=== PATIENT | female | born 1940 | race Caucasian/White ===

== ENCOUNTER 2016-08-04 15:08 | Outpatient (CLI) | payer MEDICARE | END 2016-08-04 15:09 | disposition critical access hospital (66) | LOC: EMS 15:08 | PROVIDERS: ATTEND Surgery | DX: R53.83 Other fatigue (principal); R53.1 Weakness; R41.0 Disorientation, unspecified; R50.9 Fever, unspecified | CPT/HCPCS: A0425; A0427 ==

== ENCOUNTER 2016-08-04 15:30 | Inpatient (IN) | payer MEDICARE ==
[2016-08-04] MEDS ORDERED: SODIUM CHLORIDE 0.9% 1,000 ML IV ONE (15:47)
--- NOTE | 2016-08-04 15:50 | ED Physician Documentation ---
History of Present Illness - Stated complaint Stated Complaint: LETHARGIC - Chief complaint Chief Complaint: Resp - History obtained from History obtained from: Family (daughter) - History of Present Illness Timing: Other (76-year-old with dementia and COPD, wears home O2, recently brought up from [place] to live with her daughter because of care issues. Over the last 3 days developed increasingly altered mental status as well as a productive cough and shortness of breath.) Review of Systems Unable to obtain: Confused PD PAST MEDICAL HISTORY - Present Medications Home Medications: Ambulatory Orders Medication Instructions Recorded Confirmed Albuterol Sulf [Ventolin Hfa 1 puffs INH PRN PRN 08/04/16 08/04/16 Inhaler] Atenolol 50 mg PO BID 08/04/16 08/04/16 Clopidogrel [Plavix] 75 mg PO DAILY 08/04/16 08/04/16 Gabapentin 300 mg PO BID 08/04/16 08/04/16 - Allergies Allergies/Adverse Reactions: Allergies Allergy/AdvReac Type Severity Reaction Status Date / Time No Known Drug Allergies Allergy Verified 08/04/16 15:43 PD ED PE NORMAL - Vitals Vital signs reviewed: Yes - General General: Other (somewhat lethargic, saying her daughter's name but not following commands well or answering questions, quite thin) - HEENT HEENT: PERRL, Other (dry MM) - Neck Neck: Supple, no meningeal sign, No bony TTP - Cardiac Cardiac: RRR, No murmur - Respiratory Respiratory: Other (Rhonchourous throughout, diminished R base) - Abdomen Abdomen: Soft, Other (TP low abd) - Back Back: No CVA TTP, No spinal TTP - Derm Derm: No rash - Extremities Extremities: No edema, No calf tenderness / cord - Neuro Neuro: No motor deficit, No sensory deficit, Other (JOHNSON x4) Results - Vitals Vitals: Vital Signs - 24 hr 08/04/16 08/04/16 08/04/16 15:36 17:11 19:38 Temperature 37.0 C Heart Rate 87 95 108 H Respiratory 20 33 H Rate Blood Pressure 170/92 H 160/113 H O2 Saturation 100 97 08/04/16 08/04/16 08/04/16 19:45 19:54 20:04 Temperature Heart Rate 113 H 106 H 117 H Respiratory 34 H 28 H 29 H Rate Blood Pressure 155/99 H O2 Saturation 98 05/09/17 05/09/17 05/09/17 20:45 21:19 23:08 Temperature Heart Rate 115 H 97 82 Respiratory 30 H 26 H 26 H Rate Blood Pressure 131/61 H 107/57 L 116/49 L O2 Saturation 99 99 99 Oxygen O2 Source BIPAP Oxygen Flow Rate 4 - EKG (time done) 1618 Rate: Rate (enter#) (72) Rhythm: NSR, PUNE[place]: Normal QRS: Normal Ischemia: Normal ST segments Computer interpretation: Agree with computer - Labs Labs: Laboratory Tests 08/04/16 08/04/16 08/04/16 16:23 16:23 16:23 WBC 15.3 H RBC 3.37 L Hgb 8.8 L Hct 29.2 L MCV 86.6 MCH 26.1 L MCHC 30.2 L RDW 17.7 H Plt Count 441 MPV 7.4 L Neut # 13.6 H Lymph # 0.3 L [place] # 1.4 H Eos # 0.0 Baso # 0.0 Absolute Nucleated RBC 0.03 Nucleated RBCs 0.2 PT 11.5 INR 1.0 VBG pH VBG pCO2 VBG pO2 VBG HCO3 VBG Total CO2 VBG O2 Saturation VBG Base Excess Sodium 144 Potassium 4.6 Chloride 97 L Carbon Dioxide 39 H* Anion Gap 8.0 BUN 25 H Creatinine 1.0 Estimated GFR (MDRD) 54 L Glucose 101 H Lactic Acid Calcium 9.7 Total Bilirubin 0.4 AST 34 ALT 53 Alkaline Phosphatase 99 Total Protein 6.5 L Albumin 2.9 L Globulin 3.6 Albumin/Globulin Ratio 0.8 L Lipase 33 Urine Color Urine Clarity Urine pH Ur Specific [place] Urine Protein Urine Glucose (UA) Urine Ketones Urine Occult Blood Urine Nitrite Urine Bilirubin Urine Urobilinogen Ur Leukocyte Esterase Urine RBC Urine WBC Ur Squamous Epith Cells Urine Crystals Urine Bacteria Urine Casts Urine Mucus Ur Microscopic Review Urine Culture Comments 08/04/16 08/04/16 08/04/16 16:23 16:40 20:15 WBC RBC Hgb Hct MCV MCH MCHC RDW Plt Count MPV Neut # Lymph # [place] # Eos # Baso # Absolute Nucleated RBC Nucleated RBCs PT INR VBG pH 7.096 L VBG pCO2 100.7 H VBG pO2 40.0 VBG HCO3 30.3 H VBG Total CO2 33.4 H VBG O2 Saturation 62.4 VBG Base Excess -1.3 Sodium Potassium Chloride Carbon Dioxide Anion Gap BUN Creatinine Estimated GFR (MDRD) Glucose Lactic Acid 1.2 Calcium Total Bilirubin AST ALT Alkaline Phosphatase Total Protein Albumin Globulin Albumin/Globulin Ratio Lipase Urine Color YELLOW Urine Clarity CLEAR Urine pH 6.0 Ur Specific [place] >=1.030 H Urine Protein 100 H Urine Glucose (UA) NEGATIVE Urine Ketones NEGATIVE Urine Occult Blood SMALL H Urine Nitrite NEGATIVE Urine Bilirubin NEGATIVE Urine Urobilinogen 0.2 (NORMAL) Ur Leukocyte Esterase NEGATIVE Urine RBC None Seen Urine WBC 0-3 Ur Squamous Epith Cells NONE SEEN Urine Crystals 0-2 Uric Acid Urine Bacteria Few Urine Casts 0-2 Hyaline Casts Urine Mucus Few Strands Ur Microscopic Review INDICATED Urine Culture Comments NOT INDICATED - Rads (name of study) 1v chest Radiology: EMP read contemporaneously (2.5 cm mid left lung nodule, diffuse interstitial opacities. Note the daughter was aware of a lung nodule and is following with a composition professor for evaluation, she is aware that it may be cancer.) HEAD CT Radiology: EMP read contemporaneously (AGE RELATED CHGS) CT A/P Radiology: EMP read contemporaneously (Right lower lobe nodule, opacities in both lungs, bibasilar consolidation with effusions, large calcified fibroid, abdominal aortic atherosclerosis) PD MEDICAL DECISION MAKING - ED course ED course: 76-year-old woman with COPD, peripheral vascular disease and dementia presents with acutely altered mental status with a productive cough. Chest x-ray shows a known nodule, CT of the abdomen and pelvis done for abdominal tenderness does demonstrate bibasilar pneumonia and concerns for metastatic disease as well as vascular disease. She is administered IV antibiotics (rocephin and zithro IV), steroid, nebulized treatments (x4) for some respiratory distress and will need to be admitted given her tenuous status. She did have a respiratory decline while here and developed more respiratory distress. After Dr. Graff's evaluation a blood gas was done and noted to have a respiratory acidosis which was pretty significant. She was placed on BiPAP. Intubation was discussed with the family and they were on the fence, given her cachexia etc. prognosis is fairly poor with intubation were without. She seemed comfortable once on BiPAP though. ICU here was full, so she couldn't be admitted here. I called [facility], they do not except critical patients in transport because there hospitalist is not in house during the night. [facility] was full, [place] full, [place] full. [place] full[place] [facility] full, [place] Full[place] Accepted by Dr Lowery at [facility] at 11pm, he reuqested we do a POLST prior to transport. Form discussed with daughter and son and agree she is now DNR/DNI, limited interventions, no tube feeds. But ok with Bipap, abx, IVF. [facility] called back very quickly and backtracked- due to a sick RN they cannot accept the patient. Spoke more with house sup here and ok to keep here - an ICU bed opened up. - Consults Consults: Consulted (name) (Dr Graff, hospitalist [id number]) - Critical Care Time(min): 59 Time Includes: Direct patient care, Review records, Reassess patient, Document care, Coordinate care, Medical consult, Family consult for tx dec Data interpretation: Labs, Pulse ox Procedures included in critical care time: Peripheral IV Procedures excluded from critical care time: EKG Departure - Departure Disposition: 66 [facility] DC/Xfer Clinical Impression: COPD exacerbation Altered mental status Qualifiers: Altered mental status type: delirium Qualified Code(s): R41.0 - Disorientation , unspecified Condition: Serious
[2016-08-04 16:30] LABS: BASOPHILS % (AUTO) 0.1 %; EOSINOPHILS % (AUTO) 0.1 %; HCT - HEMATOCRIT 29.2 % (37.0-47.0); HGB - HEMOGLOBIN 8.8 g/dL (12.0-16.0); LYMPHOCYTES # (AUTO) 0.3 10^3/uL (1.5-3.5); LYMPHOCYTES % (AUTO) 2.1 %; MEAN CORPUSCULAR HEMOGLOBIN 26.1 pg (27.0-31.0); MEAN CORPUSCULAR HGB CONC 30.2 g/dL (32.0-36.0); MEAN CORPUSCULAR VOLUME 86.6 fL (81.0-99.0); MEAN PLATELET VOLUME 7.4 fL (7.9-10.8); MONOCYTES # (AUTO) 1.4 10^3/uL (0.0-1.0); NEUTROPHILS # (AUTO) 13.6 10^3/uL (1.5-6.6); NEUTROPHILS % (AUTO) 88.7 %; NUCLEATED RED BLOOD CELLS AUTO 0.2 /100WBC; RED BLOOD COUNT 3.37 10^6/uL (4.20-5.40); RED CELL DISTRIBUTION WIDTH 17.7 % (12.0-15.0); UNCORRECTED WHITE BLOOD COUNT 15.3 x10^3/uL; WHITE BLOOD COUNT 15.3 x10^3/uL (4.8-10.8)
[2016-08-04 16:43] LABS: PT - PROTHROMBIN TIME 11.5 secs (9.9-12.6)
--- NOTE | 2016-08-04 16:44 | XRAY Report ---
EXAM: CHEST RADIOGRAPHY EXAM DATE: 08/04/2016 04:20 PM. CLINICAL HISTORY: Severe cough. COMPARISON: None. TECHNIQUE: 1 view. FINDINGS: Lungs/Pleura: There is a 2.5 cm rounded nodule in the left mid lung projecting lateral to the hilum. There are findings of previous surgery of the right lung with right lung volume loss. There is modera te diffuse interstitial and reticular pulmonary density. Negative for a pneumothorax. Mediastinum: Heart size is normal. Mild to moderate aortic arch atherosclerotic calcification. Other: None. IMPRESSION: 1. 2.5 cm mid left lung nodule. Differential diagnosis includes lung cancer, pneumonia, superimposed density, granulomatous disease. Comparison with previous chest x-rays recommended to evaluate stabili ty. Further workup may include serial follow-up chest x-ray or chest CT. 2. Diffuse interstitial opacities, chronic versus acute. Differential considerations include panbronc hiolitis, pulmonary fibrosis, viral pneumonia, diffuse airways inflammation, or edema. [facility] Referring Provider Line: [phone] SITE ID: [id number]
[2016-08-04 16:48] LABS: BILIRUBIN,URINE NEGATIVE (NEGATIVE)
[2016-08-04 16:50] LABS: ALBUMIN/GLOBULIN RATIO 0.8 (1.0-2.2); BILIRUBIN,TOTAL 0.4 mg/dL (0.2-1.0); CALCIUM 9.7 mg/dL (8.5-10.3); POTASSIUM 4.6 mmol/L (3.5-5.0); TOTAL PROTEIN 6.5 g/dL (6.7-8.2)
[2016-08-04 16:52] LABS: UA w/ MICROSCOPIC CHARGE YES
[2016-08-04 17:02] LABS: WBC,URINE 0-3 /HPF (0-5)
[2016-08-04 17:03] LABS: UR CULTURE IF IND NOT INDICATED
[2016-08-04] MEDS ORDERED: IOPAMIDOL-300 100 ML VIAL IVP ONE (18:04)
--- NOTE | 2016-08-04 18:32 | CT Preliminary Report ---
Exam: CT Head W/O IMPRESSION: Generalized age-related cortical atrophic changes without evidence of acute intracranial abnormality. [facility] SITE ID: [id number]
--- NOTE | 2016-08-04 18:34 | CT Report ---
EXAM: CT HEAD EXAM DATE: 08/04/2016 06:08 PM. CLINICAL HISTORY: Altered . COMPARISON: None. TECHNIQUE: Multiaxial CT images were obtained from the foramen magnum to the vertex. IV contrast: Non e. Reformats: Coronal. In accordance with CT protocol optimization, one or more of the following dose reduction techniques w ere utilized for this exam: automated exposure control, adjustment of mA and/or KV based on patient s ize, or use of iterative reconstructive technique. FINDINGS: Parenchyma: No intraparenchymal hemorrhage. No evidence of mass, midline shift, or CT findings of acu te infarction. Patton-white differentiation is distinct. Extraaxial Spaces: Normal for age. No subdural or epidural collections identified. Ventricles: The ventricles and cortical sulci are enlarged, consistent with age-related tissue loss. Sinuses: Imaged paranasal sinuses, orbits, and mastoids show no significant abnormality. Bones: No evidence of fracture or calvarial defect. Other: Diffuse chronic microangiopathic white matter changes are evident. IMPRESSION: Generalized age-related cortical atrophic changes without evidence of acute intracranial abnormality. [facility] Referring Provider Line: [phone] SITE ID: [id number]
--- NOTE | 2016-08-04 18:46 | CT Preliminary Report ---
Exam: CT Abdomen/Pelvis W/ IMPRESSION: 1. Right lower lobe 1.2 cm pulmonary nodule. Further workup for lung malignancy is recommended. There are scattered smaller bilateral lower lobe pulmonary nodules. These could be metastasis versus infec tious/inflammatory nodules. 2. [id number] bilateral reticular hazy opacities are seen in the lungs which could represent pu lmonary fibrotic changes versus infectious/inflammatory disease. Mild amount of pulmonary edema is no t excluded. 3. Minimal bibasilar consolidation and bilateral pleural effusions. 4. Large posterior subserosal uterine fibroid, heavily calcified, measures 5.3 cm. 5. Marked atherosclerotic calcification of the abdominal aorta with severe calcification of the bilat eral iliac arteries. This appears to be causing hemodynamically significant stenosis in the bilateral common iliac arteries. Otherwise, as above. [facility] SITE ID: [id number]
--- NOTE | 2016-08-04 18:49 | CT Report ---
EXAM: CT ABDOMEN AND PELVIS EXAM DATE: 08/04/2016 06:08 PM. CLINICAL HISTORY: Low abdominal tender to palpation, altered COMPARISONS: CT abdomen pelvis 08/04/2016. TECHNIQUE: Routine helical CT imaging was performed through the abdomen and pelvis. IV contrast: 80 m L Isovue 300. Enteric contrast: No. Reconstructions: Coronal and sagittal. In accordance with CT protocol optimization, one or more of the following dose reduction techniques w ere utilized for this exam: automated exposure control, adjustment of mA and/or KV based on patient s ize, or use of iterative reconstructive technique. FINDINGS: Lung bases: Marked atherosclerotic calcification of the descending thoracic aorta. There is breathing motion artifact. Right lower lobe lobular pulmonary nodule measures 1.2 cm. Mild-t o-moderate bilateral reticular hazy opacities are seen in the lungs which could represent pulmonary f ibrotic changes versus infectious/inflammatory disease. Mild amount of pulmonary edema is not exclude d. There are scattered smaller pulmonary nodules seen bilaterally in the lung bases. Minimal bibasila r consolidation and bilateral pleural effusions. Liver: Within normal limits. Gallbladder: Normal. Bile ducts: No bile duct dilatation. Pancreas: Normal. Spleen: Normal. Severe splenic artery calcification. Adrenals: Small right adrenal mass measuring 5 mm versus focal nodularity. Unremarkable left adrenal. Kidneys: Mild atrophy right kidney with multiple renal cortical scars. Nonspecific low-density left k idney measuring 5 mm. No hydronephrosis. Marked atherosclerotic calcification of the abdominal aorta with severe calcification of the bilatera l iliac arteries. This appears to be causing hemodynamically significant stenosis in the bilateral co mmon iliac arteries. Bowel: No acute findings. No evidence for bowel obstruction. The appendix is not seen. No free fluid or free air. Pelvis: Large posterior subserosal uterine fibroid, heavily calcified, measures 5.3 cm. Bladder is unremarkable.. Mild anterolisthesis of L4 and L5, could be degenerative. No acute bone findings seen. IMPRESSION: 1. Right lower lobe 1.2 cm pulmonary nodule. Further workup for lung malignancy is recommended. There are scattered smaller bilateral lower lobe pulmonary nodules. These could be metastasis versus infec tious/inflammatory nodules. 2. [id number] bilateral reticular hazy opacities are seen in the lungs which could represent pu lmonary fibrotic changes versus infectious/inflammatory disease. Mild amount of pulmonary edema is no t excluded. 3. Minimal bibasilar consolidation and bilateral pleural effusions. 4. Large posterior subserosal uterine fibroid, heavily calcified, measures 5.3 cm. 5. Marked atherosclerotic calcification of the abdominal aorta with severe calcification of the bilat eral iliac arteries. This appears to be causing hemodynamically significant stenosis in the bilateral common iliac arteries. Otherwise, as above. [facility] Referring Provider Line: [phone] SITE ID: [id number]
[2016-08-04] MEDS ORDERED: IPRATROPIUM/ALBUTEROL 3 ML NEB INH STA (18:59)
[2016-08-04] MEDS ORDERED: methylPREDNISolone SUCCINATE 125 MG/2 ML VIAL IVP STA (18:59)
[2016-08-04] MEDS ORDERED: cefTRIAXone 1 GM in SODIUM CHLORIDE 0.9% MINIBAG 100 ML IV STA (18:59)
[2016-08-04] MEDS ORDERED: methylPREDNISolone SUCCINATE 125 MG/2 ML VIAL IVP ONE (19:03)
[2016-08-04] MEDS ORDERED: cefTRIAXone 1 GM VIAL ONE (19:04)
[2016-08-04] MEDS ORDERED: AZITHROMYCIN INJ 500 MG in SODIUM CHLORIDE 0.9% 250 ML IV STA (19:10)
[2016-08-04] MEDS ORDERED: IPRATROPIUM/ALBUTEROL 3 ML NEB INH ONE (19:34)
[2016-08-04] MEDS ORDERED: ALBUTEROL NEB 2.5 MG/3 ML INH ONE ×2 (19:43→20:01)
[2016-08-04] MEDS ORDERED: ALBUTEROL NEB 2.5 MG/3 ML INH STA ×2 (19:45→20:02)
[2016-08-04 20:21] LABS: VBG PH 7.096 (7.31-7.41)
[2016-08-04 20:22] LABS: VBG BASE EXCESS -1.3 mmol/L (-2 - +2); VBG OXYGEN SATURATION 62.4 % (60-80); VBG TOTAL CO2 33.4 mmol/L (24-29)
[2016-08-04] MEDS ORDERED: MORPHINE 2 MG/ML SYRINGE IVP STA ×3 (20:36→23:32)
[2016-08-04] MEDS ORDERED: MORPHINE 2 MG/ML SYRINGE ONE ×3 (20:39→23:27)
[2016-08-04] MEDS ORDERED: ACETAMINOPHEN 325 MG TABLET PO PRN (23:27)
[2016-08-04] MEDS ORDERED: IPRATROPIUM/ALBUTEROL 3 ML NEB INH PRN (23:27)
[2016-08-04] MEDS ORDERED: ONDANSETRON 4 MG/2 ML VIAL IVP PRN (23:27)
[2016-08-04] MEDS ORDERED: LEVALBUTEROL 1.25 MG INH PRN (23:27)
[2016-08-04] MEDS ORDERED: PROCHLORPERAZINE 10 MG/2 ML VIAL IVP PRN (23:27)
[2016-08-04] MEDS ORDERED: oxyCODONE 5 MG TABLET PO PRN (23:27)
[2016-08-04] MEDS ORDERED: LORazepam 2 MG/ML SYRINGE IVP STA (23:32)
[2016-08-04] MEDS ORDERED: LORazepam 2 MG/ML SYRINGE ONE (23:34)
[2016-08-05] MEDS: SODIUM CHLORIDE 0.9% 1,000 ML IV SCH ×2 (00:53→13:06)
[2016-08-05] MEDS: methylPREDNISolone SUCCINATE 40 MG/ML VIAL IVP SCH ×4 (00:56→17:22)
[2016-08-05] MEDS: PIPERACILLIN/TAZOBACTAM 3.375 GM in SODIUM CHLORIDE 0.9% MINIBAG 100 ML IV SCH ×3 (00:58→04:23)
[2016-08-05 01:56] LABS: ABG BASE EXCESS 3.5 mmol/L (-2.0-3.0); ABG HCO3 32.5 mmol/L (22.0-26.0); ABG OXYGEN SATURATION 96 % (94-98); ABG PH 7.22 (7.35-7.45); ABG PO2 94 mmHg (80-100)
[2016-08-05 01:57] LABS: ABG EXPIRATORY POS AIRWAY P 4 cmH2O; ABG INSPIRATORY POS AIRWAY P 12 cmH2O; ABG MODE OF VENTILATION SYNCHRONOUS/TIMES; ABG O2 DEVICE BiPAP; ABG SATURATION PULSE OXIMETRY% 100 %; ABG SITE OF DRAW RIGHT BRACHIAL
[2016-08-05 02:02] LABS: ABG PCO2 81 mmHg (34-45)
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
[2016-08-05] MEDS: SODIUM CHLORIDE FLUSH 0.9% 10 ML SYRINGE IVP SCH ×2 (04:25→12:56)
[2016-08-05 05:32] LABS: BASOPHILS % (AUTO) 0.1 %; HCT - HEMATOCRIT 29.6 % (37.0-47.0); HGB - HEMOGLOBIN 8.5 g/dL (12.0-16.0); LYMPHOCYTES # (AUTO) 0.1 10^3/uL (1.5-3.5); LYMPHOCYTES % (AUTO) 0.8 %; MEAN CORPUSCULAR HGB CONC 28.7 g/dL (32.0-36.0); MEAN CORPUSCULAR VOLUME 90.4 fL (81.0-99.0); MEAN PLATELET VOLUME 7.9 fL (7.9-10.8); MONOCYTES # (AUTO) 0.6 10^3/uL (0.0-1.0); MONOCYTES % (AUTO) 3.9 %; NEUTROPHILS # (AUTO) 15.7 10^3/uL (1.5-6.6); NEUTROPHILS % (AUTO) 95.2 %; NUCLEATED RED BLOOD CELLS AUTO 0.4 /100WBC; RED BLOOD COUNT 3.27 10^6/uL (4.20-5.40); RED CELL DISTRIBUTION WIDTH 18.5 % (12.0-15.0); UNCORRECTED WHITE BLOOD COUNT 16.5 x10^3/uL; WHITE BLOOD COUNT 16.5 x10^3/uL (4.8-10.8)
[2016-08-05] MEDS: PIPERACILLIN/TAZOBACTAM 2.25 GM in SODIUM CHLORIDE 0.9% MINIBAG 100 ML IV SCH ×3 (05:44→17:22)
[2016-08-05 05:45] LABS: ALBUMIN/GLOBULIN RATIO 0.8 (1.0-2.2); BILIRUBIN,TOTAL 0.4 mg/dL (0.2-1.0); CALCIUM 9.1 mg/dL (8.5-10.3); CREATININE 1.3 mg/dL (0.4-1.0); MAGNESIUM 2.2 mg/dL (1.7-2.8); PHOSPHORUS 3.9 mg/dL (2.5-4.6); POTASSIUM 4.4 mmol/L (3.5-5.0); TOTAL PROTEIN 5.9 g/dL (6.7-8.2)
[2016-08-05] MEDS: IPRATROPIUM/ALBUTEROL 3 ML NEB INH SCH ×4 (05:55→22:45)
[2016-08-05 06:03] LABS: PLATELET ESTIMATE, MANUAL NORMAL (130-450,000) (NORMAL); PLATELET MORPHOLOGY NORMAL APPEARANCE (NORMAL)
[2016-08-05 08:51] LABS: INR 1.1 (0.8-1.2); PT - PROTHROMBIN TIME 12.3 secs (9.9-12.6)
--- NOTE | 2016-08-05 09:11 | XRAY Report ---
FRONTAL CHEST: 08/05/2016 CLINICAL INDICATION: Respiratory failure. COMPARISON: 08/04/2016 FINDINGS: Frontal view of the chest demonstrates a normal cardiac silhouette. Postoperative changes in the left upper lobe are stable, with stable volume loss. Extensive fibrotic changes are stable. Left mid lung nodule is unchanged. No new effusion, consolidation, or pneumothorax is seen. IMPRESSION: NO SIGNIFICANT INTERVAL CHANGE IN DIFFUSE INTERSTITIAL OPACITIES AND LEFT LUNG NODULE. NO NEW CONSOLIDATION OR PLEURAL ABNORMALITY. JOB #: [id number] EXT JOB #:[id number]
[2016-08-05] MEDS: ATENOLOL 25 MG TABLET PO SCH ×3 (09:13→22:02)
[2016-08-05] MEDS: ENOXAPARIN 40 MG/0.4 ML SYRINGE SUBQ SCH (09:13)
[2016-08-05] MEDS: FAMOTIDINE 20 MG/50 ML 50 ML IV SCH (09:13)
[2016-08-05] MEDS: CLOPIDOGREL 75 MG TABLET PO SCH ×2 (09:13→14:09)
[2016-08-05] MEDS: CHLORHEXIDINE GLUCONATE 15 ML UDC PO SCH ×2 (09:13→21:34)
[2016-08-05] MEDS: GABAPENTIN 300 MG CAPSULE PO SCH ×3 (09:15→22:02)
[2016-08-05] MEDS: LORazepam 2 MG/ML SYRINGE IVP PRN ×3 (13:45→18:57)
[2016-08-05] MEDS: MORPHINE 2 MG/ML SYRINGE IVP PRN ×2 (19:47→22:31)
[2016-08-06] MEDS: methylPREDNISolone SUCCINATE 40 MG/ML VIAL IVP SCH ×5 (00:14→21:24)
[2016-08-06] MEDS: PIPERACILLIN/TAZOBACTAM 2.25 GM in SODIUM CHLORIDE 0.9% MINIBAG 100 ML IV SCH ×4 (00:15→17:18)
[2016-08-06] MEDS: SODIUM CHLORIDE 0.9% 1,000 ML IV SCH ×2 (00:15→00:28)
[2016-08-06] MEDS: SODIUM CHLORIDE FLUSH 0.9% 10 ML SYRINGE IVP SCH ×4 (00:16→22:11)
[2016-08-06] MEDS: MORPHINE 2 MG/ML SYRINGE IVP PRN ×5 (04:22→23:47)
[2016-08-06 05:12] LABS: BASOPHILS % (AUTO) 0.1 %; HCT - HEMATOCRIT 26.2 % (37.0-47.0); HGB - HEMOGLOBIN 7.9 g/dL (12.0-16.0); LYMPHOCYTES % (AUTO) 0.5 %; MEAN CORPUSCULAR HEMOGLOBIN 26.2 pg (27.0-31.0); MEAN CORPUSCULAR HGB CONC 29.9 g/dL (32.0-36.0); MEAN CORPUSCULAR VOLUME 87.5 fL (81.0-99.0); MEAN PLATELET VOLUME 7.8 fL (7.9-10.8); NEUTROPHILS % (AUTO) 94.4 %; RED CELL DISTRIBUTION WIDTH 18.9 % (12.0-15.0); UNCORRECTED WHITE BLOOD COUNT 23.2 x10^3/uL; WHITE BLOOD COUNT 23.2 x10^3/uL (4.8-10.8)
[2016-08-06 05:23] LABS: ABG BASE EXCESS 4.2 mmol/L (-2.0-3.0); ABG HCO3 31.2 mmol/L (22.0-26.0); ABG O2 DEVICE BiPAP; ABG OXYGEN SATURATION 95 % (94-98); ABG PH 7.32 (7.35-7.45); ABG PO2 80 mmHg (80-100); ABG SATURATION PULSE OXIMETRY% 99 %; ABG SITE OF DRAW LEFT RADIAL; ABG TCO2 33.1 MMOL/L (21.0-29.0); ALLEN TEST POSITIVE
[2016-08-06 05:24] LABS: ABG EXPIRATORY POS AIRWAY P 4 cmH2O; ABG INSPIRATORY POS AIRWAY P 12 cmH2O; ABG MODE OF VENTILATION SYNCHRONOUS/TIMES; ABG PRESSURE SUPPORT VENT 8 cmH2O; ABG RESPIRATORY RATE 14 b/min
[2016-08-06 05:25] LABS: ABG PCO2 63 mmHg (34-45)
[2016-08-06 05:28] LABS: CHOL/HDL RATIO 3.2 (<4.4); CHOLESTEROL 116 mg/dL; HDL CHOLESTEROL 36 mg/dL; LDL/HDL RATIO 1.6 (<4.4); TRIGLYCERIDES 111 mg/dL; VLDL CHOLESTEROL 22 mg/dL
[2016-08-06 05:30] LABS: ALBUMIN/GLOBULIN RATIO 0.8 (1.0-2.2); BILIRUBIN,TOTAL 0.4 mg/dL (0.2-1.0); CALCIUM 9.2 mg/dL (8.5-10.3); CREATININE 1.6 mg/dL (0.4-1.0); MAGNESIUM 2.2 mg/dL (1.7-2.8); PHOSPHORUS 2.6 mg/dL (2.5-4.6); POTASSIUM 4.1 mmol/L (3.5-5.0); TOTAL PROTEIN 5.6 g/dL (6.7-8.2)
[2016-08-06 05:39] LABS: BAND NEUTROPHILS % (MANUAL) 33 %; LYMPHOCYTES % (MANUAL) 2 %; NEUTROPHILS % (MANUAL) 59 %; NP AUTO DIFFERENTIAL? YES; NP MAN DIFFERENTIAL? NO; PLATELET ESTIMATE, MANUAL NORMAL (130-450,000) (NORMAL); TOTAL CELLS COUNTED 100
[2016-08-06] MEDS: IPRATROPIUM/ALBUTEROL 3 ML NEB INH SCH ×4 (05:43→18:25)
[2016-08-06] MEDS: LORazepam 2 MG/ML SYRINGE IVP PRN ×3 (05:46→21:33)
[2016-08-06] MEDS: DEXTROSE 5% 1,000 ML IV SCH ×2 (05:56→18:10)
--- NOTE | 2016-08-06 06:02 | XRAY Preliminary Report ---
Exam: XR Chest 1 View IMPRESSION: 1. Bilateral pulmonary opacities are unchanged or slightly worse. 2. Minimal pleural effusions. [facility]I SITE ID: [id number]
--- NOTE | 2016-08-06 06:06 | XRAY Report ---
EXAM: CHEST RADIOGRAPHY EXAM DATE: 08/06/2016 05:46 AM. CLINICAL HISTORY: Respiratory failure on BiPAP. COMPARISON: 08/05/2016. TECHNIQUE: 1 view. FINDINGS: Lungs/Pleura: Postoperative changes and volume loss again seen in the right upper lobe. Bilateral pul monary opacities are similar or slightly worse compared with the prior examination. Minimal pleural e ffusions. No pneumothorax. Mediastinum: Heart size is normal. Aortic atherosclerosis. Other: None. IMPRESSION: 1. Bilateral pulmonary opacities are unchanged or slightly worse. 2. Minimal pleural effusions. [facility] Referring Provider Line: [phone] SITE ID: [id number]
[2016-08-06] MEDS: ENOXAPARIN 40 MG/0.4 ML SYRINGE SUBQ SCH (08:38)
[2016-08-06] MEDS: CHLORHEXIDINE GLUCONATE 15 ML UDC PO SCH ×2 (08:38→22:12)
[2016-08-06] MEDS: FAMOTIDINE 20 MG/50 ML 50 ML IV SCH (08:39)
[2016-08-06] MEDS: ATENOLOL 25 MG TABLET PO SCH ×2 (08:54→22:12)
[2016-08-06] MEDS: CLOPIDOGREL 75 MG TABLET PO SCH (08:54)
[2016-08-06] MEDS: GABAPENTIN 300 MG CAPSULE PO SCH (08:54)
[2016-08-06 10:15] LABS: ABG ANALYSIS TIME 1002; ABG HCO3 29.3 mmol/L (22.0-26.0); ABG OXYGEN SATURATION 95 % (94-98); ABG PH 7.29 (7.35-7.45); ABG PO2 77 mmHg (80-100); ABG TCO2 31.2 MMOL/L (21.0-29.0)
[2016-08-06 10:16] LABS: ABG EXPIRATORY POS AIRWAY P 5 cmH2O; ABG INSPIRATORY POS AIRWAY P 14 cmH2O; ABG O2 DEVICE BiPAP; ABG SITE OF DRAW LEFT BRACHIAL
[2016-08-06 10:17] LABS: ABG PCO2 63 mmHg (34-45)
[2016-08-06] MEDS: METOPROLOL 5 MG/5 ML VIAL IVP PRN (12:08)
--- NOTE | 2016-08-06 12:16 | PROVIDER PROGRESS NOTE ---
Assessment/Plan - Problem List (1) Acute and chronic respiratory failure with hypercapnia Assessment/Plan: She has not improved and is worse today. HEr pH is slightly worse and the pCO2 is the same. The mask and the pressures have been a challenge. (2) CAP (community acquired pneumonia) Assessment/Plan: Her pneumonia is not better or sig worse on the XRAY She is ot doing well because of the rep failure. She was on BIPAP all night and continued into the am. (3) Encephalopathy Assessment/Plan: she is cooperative at times. (4) Atrial fibrillation with RVR Assessment/Plan: This is new and may be because of the illness. She also did not get her tenormin this am which may be a contributing cause. She thong get prn Metoprolol in hte short term. - Current Meds Current Meds: Current Medications Generic Name Dose Route Start Last Admin Trade Name Freq PRN Reason Stop Dose Admin Albuterol/Ipratropium 3 ml 08/05/16 01:00 08/06/16 05:43 Duoneb INH 3 ml RTQ6H MOSES Administration Atenolol 50 mg 08/05/16 09:00 08/06/16 08:54 Tenormin PO Not Given BID MOSES Chlorhexidine Gluconate 15 ml 08/05/16 09:00 08/06/16 08:38 Peridex PO 15 ml BID MOSES Administration Clopidogrel Bisulfate 75 mg 08/05/16 09:00 08/06/16 08:54 Plavix PO Not Given DAILY MOSES Enoxaparin Sodium 40 mg 08/05/16 09:00 08/06/16 08:38 Lovenox SUBQ 40 mg DAILY MOSES Administration Famotidine 50 mls @ 100 mls/hr 08/05/16 09:00 08/06/16 08:39 Pepcid 20 Mg/50 Ml IV 100 mls/hr DAILY MOSES Administration Levofloxacin 150 mls @ 100 mls/hr 08/05/16 01:47 08/05/16 04:24 Levaquin 750 Mg/150 Ml IV Not Given Q48H MOSES Piperacillin Sod/Tazobactam 100 mls @ 200 mls/hr 08/05/16 06:00 08/06/16 11:28 Sod 2.25 gm/ Sodium Chloride IV 200 mls/hr Q6H MOSES Administration Dextrose 1,000 mls @ 100 mls/hr 08/06/16 06:00 08/06/16 05:56 D5w IV 100 mls/hr .Q10H MOSES Administration Lorazepam 0.5 mg 08/04/16 23:27 08/06/16 09:48 Ativan Inj IVP 0.5 mg Q2HR PRN Administration Anxiety Metoprolol Tartrate 5 mg 08/06/16 12:00 08/06/16 12:08 Lopressor Inj IVP 5 mg Q6H PRN Administration Tachycardia Morphine Sulfate 2 mg 08/05/16 19:35 08/06/16 09:39 Morphine IVP 2 mg Q2HR PRN Administration PAIN Sodium Chloride 10 ml 08/05/16 06:00 08/06/16 07:27 Normal Saline Flush 0.9% IVP Not Given Q8HR MOSES - Lab Result Fish Bone Diagrams: 08/06/16 04:58 08/06/16 04:58 - Additional Planning My Orders: My Active Orders 08/06/16 04:58 HEPATITIS ACUTE PANEL W CONF [REFLAB] DAILYLAB 08/06/16 12:00 Metoprolol Inj [Lopressor Inj] 5 mg IVP Q6H PRN 08/06/16 14:00 methylPREDNISolone SUCCINATE [SOLU-Medrol (40MG VIAL)] 40 mg IVP Q8HR Subjective - Subjective Patient Reports: Fatigue, Shortness of Breath Nursing Reports: Confused, Shortness of Breath Objective Vital Signs: Vital Signs - 24 hr 08/05/16 08/05/16 08/05/16 13:00 14:00 14:42 Temperature 36.6 C Heart Rate Heart Rate [ 82 78 78 Monitoring electrodes] Respiratory 20 28 H 31 H Rate Blood Pressure Blood Pressure 143/62 H 147/76 H 121/48 L [Right Brachial artery] O2 Saturation 97 90 L 100 08/05/16 08/05/16 08/05/16 16:00 17:00 18:00 Temperature 36.4 C L Heart Rate Heart Rate [ 78 85 77 Monitoring electrodes] Respiratory 24 30 H 28 H Rate Blood Pressure Blood Pressure 125/50 L 115/47 L 126/52 L [Right Brachial artery] O2 Saturation 100 100 100 08/05/16 08/05/16 08/05/16 19:00 20:00 21:00 Temperature 36.6 C Heart Rate Heart Rate [ 102 H 82 82 Monitoring electrodes] Respiratory 28 H 21 20 Rate Blood Pressure Blood Pressure 136/65 H 101/43 L 130/59 L [Right Brachial artery] O2 Saturation 100 100 100 08/05/16 08/05/16 08/05/16 21:20 22:00 22:45 Temperature Heart Rate 80 101 H Heart Rate [ 85 Monitoring electrodes] Respiratory 22 23 Rate Blood Pressure Blood Pressure 148/55 H [Right Brachial artery] O2 Saturation 100 08/05/16 08/05/16 08/06/16 22:59 23:00 00:00 Temperature 36.4 C L Heart Rate 85 Heart Rate [ 87 86 Monitoring electrodes] Respiratory 26 H 23 Rate Blood Pressure Blood Pressure 119/54 L 118/50 L [Right Brachial artery] O2 Saturation 99 98 08/06/16 08/06/16 08/06/16 01:00 02:00 03:00 Temperature Heart Rate 79 Heart Rate [ 80 79 78 Monitoring electrodes] Respiratory 21 17 20 Rate Blood Pressure Blood Pressure 119/58 L 118/55 L 118/59 L [Right Brachial artery] O2 Saturation 99 100 100 08/06/16 08/06/16 08/06/16 04:00 04:29 05:00 Temperature Heart Rate 75 Heart Rate [ 77 83 Monitoring electrodes] Respiratory 22 18 Rate Blood Pressure Blood Pressure 127/58 L 126/58 L [Right Brachial artery] O2 Saturation 99 99 08/06/16 08/06/16 08/06/16 05:45 05:58 07:00 Temperature 36.7 C Heart Rate 111 H Heart Rate [ 100 82 Monitoring electrodes] Respiratory 23 20 24 Rate Blood Pressure Blood Pressure 141/59 H 116/52 L [Right Brachial artery] O2 Saturation 98 08/06/16 08/06/16 08/06/16 07:21 07:36 08:51 Temperature 37.2 C Heart Rate 87 Heart Rate [ 91 82 Monitoring electrodes] Respiratory 29 H 26 H Rate Blood Pressure Blood Pressure 118/49 L 140/57 H [Right Brachial artery] O2 Saturation 96 98 08/06/16 08/06/16 08/06/16 10:00 10:27 10:58 Temperature 36.4 C L Heart Rate 80 Heart Rate [ 88 81 Monitoring electrodes] Respiratory 21 24 Rate Blood Pressure Blood Pressure 133/56 H 135/60 H [Right Brachial artery] O2 Saturation 100 93 08/06/16 08/06/16 11:58 12:08 Temperature Heart Rate 68 Heart Rate [ Monitoring electrodes] Respiratory Rate Blood Pressure 144/66 H Blood Pressure [Right Brachial artery] O2 Saturation Oxygen O2 Source BIPAP I&O (Last 24 Hrs): Intake and Output Totals x24h 08/04/16 08/05/16 08/06/16 23:59 23:59 23:59 Intake Total 2910 1150 Output Total 710 297 Balance 2200 853 General: Alert, Cooperative HEENT: PERRLA Neck: Supple, No JVD Neuro: Disoriented, Non Focal Cardiovascular: Other (A fib with RVR) Respiratory: Rhonchi Abdomen: Soft, No tenderness - Results Results: Laboratory Results WBC 23.2 x10^3/uL (4.8-10.8) H 08/06/16 04:58 RBC 3.00 10^6/uL (4.20-5.40) L 08/06/16 04:58 Hgb 7.9 g/dL (12.0-16.0) L 08/06/16 04:58 Hct 26.2 % (37.0-47.0) L 08/06/16 04:58 MCV 87.5 fL (81.0-99.0) 08/06/16 04:58 MCH 26.2 pg (27.0-31.0) L 08/06/16 04:58 MCHC 29.9 g/dL (32.0-36.0) L 08/06/16 04:58 RDW 18.9 % (12.0-15.0) H 08/06/16 04:58 Plt Count 389 10^3/uL (130-450) 08/06/16 04:58 MPV 7.8 fL (7.9-10.8) L 08/06/16 04:58 Neut # Not Reportable 08/06/16 04:58 Lymph # Not Reportable 08/06/16 04:58 [place] # Not Reportable 08/06/16 04:58 Eos # Not Reportable 08/06/16 04:58 Baso # Not Reportable 08/06/16 04:58 Absolute Nucleated RBC Not Reportable 08/06/16 04:58 Total Counted 100 08/06/16 04:58 Band Neuts % (Manual) 33 % (0-10) H 08/06/16 04:58 Neutrophils # (Manual) 21.3 10^3/uL (1.5-6.6) H 08/06/16 04:58 Lymphocytes # (Manual) 0.5 10^3/uL (1.5-3.5) L 08/06/16 04:58 Monocytes # (Manual) 1.4 10^3/uL (0.0-1.0) H 08/06/16 04:58 Nucleated RBCs 1 % 08/06/16 04:58 Differential Comment MANUAL DIFFERENTIAL 08/06/16 04:58 Manual Slide Review Indicated 08/05/16 04:57 Platelet Estimate NORMAL (130-450,000) (NORMAL) 08/06/16 04:58 Platelet Morphology NORMAL APPEARANCE (NORMAL) 08/05/16 04:57 RBC Morph Micro Appear 1+ MACROCYTOSIS (NORMAL) 1+ HYPOCHROMASIA (NORMAL) 08/05/16 04:57 RBC Morph Micro Appear NORMAL APPEARANCE (NORMAL) 08/06/16 04:58 PT 12.3 secs (9.9-12.6) 08/05/16 08:35 INR 1.1 (0.8-1.2) 08/05/16 08:35 Bld Gas Analysis Time 1002 08/06/16 10:02 Sample Site LEFT BRACHIAL 08/06/16 10:02 ABG pH 7.29 (7.35-7.45) L 08/06/16 10:02 ABG pCO2 63 mmHg (34-45) H* 08/06/16 10:02 ABG pO2 77 mmHg (80-100) L 08/06/16 10:02 ABG HCO3 29.3 mmol/L (22.0-26.0) H 08/06/16 10:02 ABG Total CO2 31.2 MMOL/L (21.0-29.0) H 08/06/16 10:02 ABG O2 Saturation 95 % (94-98) 08/06/16 10:02 ABG Oximetry Spot Check 99 % 08/06/16 05:15 ABG Base Excess 2.0 mmol/L (-2.0-3.0) 08/06/16 10:02 Sam Test NOT APPLICABLE 08/06/16 10:02 VBG pH 7.096 (7.31-7.41) L 08/04/16 20:15 VBG pCO2 100.7 mmHg (41-51) H 08/04/16 20:15 VBG pO2 40.0 mmHg (25-47) 08/04/16 20:15 VBG HCO3 30.3 mmol/L (23-28) H 08/04/16 20:15 VBG Total CO2 33.4 mmol/L (24-29) H 08/04/16 20:15 VBG O2 Saturation 62.4 % (60-80) 08/04/16 20:15 VBG Base Excess -1.3 mmol/L (-2 - +2) 08/04/16 20:15 Respiration Rate 14 b/min 08/06/16 05:15 O2 Delivery Device BiPAP 08/06/16 10:02 Vent Mode SYNCHRONOUS/TIMES 08/06/16 05:15 FiO2 30.00 08/06/16 10:02 Pressure Support Vent 8 cmH2O 08/06/16 05:15 EPAP 5 cmH2O 08/06/16 10:02 IPAP 14 cmH2O 08/06/16 10:02 Sodium 153 mmol/L (135-145) H 08/06/16 04:58 Potassium 4.1 mmol/L (3.5-5.0) 08/06/16 04:58 Chloride 113 mmol/L (101-111) H 08/06/16 04:58 Carbon Dioxide 33 mmol/L (21-32) H 08/06/16 04:58 Anion Gap 7.0 (6-13) 08/06/16 04:58 BUN 38 mg/dL (6-20) H 08/06/16 04:58 Creatinine 1.6 mg/dL (0.4-1.0) H 08/06/16 04:58 Estimated GFR (MDRD) 31 (>89) L 08/06/16 04:58 Glucose 109 mg/dL (70-100) H 08/06/16 04:58 Lactic Acid 1.2 mmol/L (0.5-2.2) 08/04/16 16:23 Calcium 9.2 mg/dL (8.5-10.3) 08/06/16 04:58 Phosphorus 2.6 mg/dL (2.5-4.6) 08/06/16 04:58 Magnesium 2.2 mg/dL (1.7-2.8) 08/06/16 04:58 Total Bilirubin 0.4 mg/dL (0.2-1.0) 08/06/16 04:58 AST 477 IU/L (10-42) H 08/06/16 04:58 ALT 463 IU/L (10-60) H 08/06/16 04:58 Alkaline Phosphatase 133 IU/L (42-121) H 08/06/16 04:58 Ammonia 15.4 umol/L (7-35) 08/06/16 04:58 Total Creatine Kinase 247 IU/L (22-269) 08/06/16 04:58 Total Protein 5.6 g/dL (6.7-8.2) L 08/06/16 04:58 Albumin 2.5 g/dL (3.2-5.5) L 08/06/16 04:58 Globulin 3.1 g/dL (2.1-4.2) 08/06/16 04:58 Albumin/Globulin Ratio 0.8 (1.0-2.2) L 08/06/16 04:58 Triglycerides 111 mg/dL (-149) 08/06/16 04:58 Cholesterol 116 mg/dL (-199) 08/06/16 04:58 LDL Cholesterol, Calc 58 mg/dL (-129) 08/06/16 04:58 VLDL Cholesterol 22 mg/dL 08/06/16 04:58 HDL Cholesterol 36 mg/dL (60-) L 08/06/16 04:58 LDL/HDL Ratio 1.6 (<4.4) 08/06/16 04:58 Cholesterol/HDL Ratio 3.2 (<4.4) 08/06/16 04:58 Lipase 96 U/L (22-51) H 08/06/16 04:58 Urine Color YELLOW 08/04/16 16:40 Urine Clarity CLEAR (CLEAR) 08/04/16 16:40 Urine pH 6.0 PH (5.0-7.5) 08/04/16 16:40 Ur Specific [place] >=1.030 (1.002-1.030) H 08/04/16 16:40 Urine Protein 100 mg/dL (NEGATIVE) H 08/04/16 16:40 Urine Glucose (UA) NEGATIVE mg/dL (NEGATIVE) 08/04/16 16:40 Urine Ketones NEGATIVE mg/dL (NEGATIVE) 08/04/16 16:40 Urine Occult Blood SMALL (NEGATIVE) H 08/04/16 16:40 Urine Nitrite NEGATIVE (NEGATIVE) 08/04/16 16:40 Urine Bilirubin NEGATIVE (NEGATIVE) 08/04/16 16:40 Urine Urobilinogen 0.2 (NORMAL) E.U./dL (NORMAL) 08/04/16 16:40 Ur Leukocyte Esterase NEGATIVE (NEGATIVE) 08/04/16 16:40 Urine RBC None Seen /HPF (0-5) 08/04/16 16:40 Urine WBC 0-3 /HPF (0-5) 08/04/16 16:40 Ur Squamous Epith Cells NONE SEEN (<= Few) 08/04/16 16:40 Urine Crystals 0-2 Uric Acid /LPF 08/04/16 16:40 Urine Bacteria Few /HPF (None Seen) 08/04/16 16:40 Urine Casts 0-2 Hyaline Casts /LPF 08/04/16 16:40 Urine Mucus Few Strands 08/04/16 16:40 Ur Microscopic Review INDICATED 08/04/16 16:40 Urine Culture Comments NOT INDICATED 08/04/16 16:40
[2016-08-06] MEDS ORDERED: METOPROLOL 5 MG/5 ML VIAL IVP STA (12:33)
[2016-08-06] MEDS ORDERED: diltiaZEM INJ 5 MG/ML VIAL ONE (13:56)
[2016-08-06] MEDS ORDERED: diltiaZEM INJ 5 MG/ML VIAL IVP ONE (14:35)
[2016-08-06] MEDS: DIGOXIN 500 MCG/2 ML AMP IVP SCH ×2 (15:26→19:55)
[2016-08-06 16:40] LABS: ABG ANALYSIS TIME 1640; ABG BASE EXCESS 3.4 mmol/L (-2.0-3.0); ABG HCO3 29.5 mmol/L (22.0-26.0); ABG O2 DEVICE BiPAP; ABG OXYGEN SATURATION 93 % (94-98); ABG PCO2 54 mmHg (34-45); ABG PH 7.36 (7.35-7.45); ABG PO2 75 mmHg (80-100); ABG SITE OF DRAW LEFT BRACHIAL; ABG TCO2 31.1 MMOL/L (21.0-29.0)
[2016-08-06 16:41] LABS: ABG EXPIRATORY POS AIRWAY P 4 cmH2O; ABG INSPIRATORY POS AIRWAY P 10 cmH2O
[2016-08-07] MEDS: PIPERACILLIN/TAZOBACTAM 2.25 GM in SODIUM CHLORIDE 0.9% MINIBAG 100 ML IV SCH ×5 (00:02→23:45)
[2016-08-07] MEDS: IPRATROPIUM/ALBUTEROL 3 ML NEB INH SCH ×4 (02:17→16:47)
[2016-08-07] MEDS: MORPHINE 2 MG/ML SYRINGE IVP PRN ×6 (03:07→23:44)
[2016-08-07] MEDS: DEXTROSE 5% 1,000 ML IV SCH ×3 (03:07→22:15)
[2016-08-07] MEDS: LORazepam 2 MG/ML SYRINGE IVP PRN ×3 (03:27→20:01)
[2016-08-07] MEDS: methylPREDNISolone SUCCINATE 40 MG/ML VIAL IVP SCH ×3 (05:09→21:31)
[2016-08-07] MEDS: SODIUM CHLORIDE FLUSH 0.9% 10 ML SYRINGE IVP SCH ×3 (05:09→21:23)
[2016-08-07 05:16] LABS: BASOPHILS % (AUTO) 0.2 %; HGB - HEMOGLOBIN 7.4 g/dL (12.0-16.0); MEAN CORPUSCULAR HEMOGLOBIN 25.6 pg (27.0-31.0); MEAN CORPUSCULAR HGB CONC 29.7 g/dL (32.0-36.0); MEAN CORPUSCULAR VOLUME 86.4 fL (81.0-99.0); MEAN PLATELET VOLUME 7.8 fL (7.9-10.8); MONOCYTES % (AUTO) 2.9 %; NEUTROPHILS % (AUTO) 95.9 %; RED BLOOD COUNT 2.89 10^6/uL (4.20-5.40); RED CELL DISTRIBUTION WIDTH 18.6 % (12.0-15.0); UNCORRECTED WHITE BLOOD COUNT 25.7 x10^3/uL; WHITE BLOOD COUNT 25.7 x10^3/uL (4.8-10.8)
[2016-08-07 05:17] LABS: ABG BASE EXCESS 4.1 mmol/L (-2.0-3.0); ABG HCO3 30.4 mmol/L (22.0-26.0); ABG OXYGEN SATURATION 95 % (94-98); ABG PCO2 57 mmHg (34-45); ABG PH 7.35 (7.35-7.45); ABG PO2 77 mmHg (80-100); ABG SITE OF DRAW LEFT BRACHIAL; ABG TCO2 32.2 MMOL/L (21.0-29.0)
[2016-08-07 05:18] LABS: ABG EXPIRATORY POS AIRWAY P 4 cmH2O; ABG INSPIRATORY POS AIRWAY P 10 cmH2O; ABG O2 DEVICE BiPAP
[2016-08-07 05:24] LABS: ALBUMIN/GLOBULIN RATIO 0.8 (1.0-2.2); BILIRUBIN,TOTAL 0.2 mg/dL (0.2-1.0); CREATININE 1.6 mg/dL (0.4-1.0); PHOSPHORUS 1.8 mg/dL (2.5-4.6); POTASSIUM 3.7 mmol/L (3.5-5.0); TOTAL PROTEIN 5.3 g/dL (6.7-8.2)
[2016-08-07 05:53] LABS: BAND NEUTROPHILS % (MANUAL) 27 %; LYMPHOCYTES % (MANUAL) 5 %; NEUTROPHILS % (MANUAL) 64 %; TOTAL CELLS COUNTED 100
[2016-08-07 05:54] LABS: NP AUTO DIFFERENTIAL? YES; NP MAN DIFFERENTIAL? NO; PLATELET ESTIMATE, MANUAL NORMAL (130-450,000) (NORMAL)
--- NOTE | 2016-08-07 09:36 | XRAY Report ---
FRONTAL CHEST: 08/07/2016 CLINICAL INDICATION: Respiratory failure. FINDINGS: Frontal view of the chest demonstrates a normal cardiac silhouette. Postoperative changes are stable. Allowing for difference in rotation, parenchymal disease is likely unchanged. Trace ef fusions are present. No pneumothorax. IMPRESSION: ALLOWING FOR DIFFERENCE IN POSITIONING, LIKELY STABLE PLEURAL AND PARENCHYMAL DISEASE. JOB #: [id number] EXT JOB #:[id number]
[2016-08-07] MEDS: FAMOTIDINE 20 MG/50 ML 50 ML IV SCH (09:39)
[2016-08-07] MEDS: ENOXAPARIN 40 MG/0.4 ML SYRINGE SUBQ SCH (09:41)
[2016-08-07] MEDS: CLOPIDOGREL 75 MG TABLET PO SCH (09:45)
[2016-08-07] MEDS: CHLORHEXIDINE GLUCONATE 15 ML UDC PO SCH ×2 (09:45→21:21)
[2016-08-07] MEDS: ATENOLOL 25 MG TABLET PO SCH ×2 (09:45→20:45)
--- NOTE | 2016-08-07 11:01 | PROVIDER PROGRESS NOTE ---
Assessment/Plan - Problem List (1) Acute and chronic respiratory failure with hypercapnia Assessment/Plan: Rocio has improved from her gilberto of yesterday afternoon. She had A fib with RVR and increased rsp failure despite the BIPAP. she reverted to NSR and had improved ABG last césar. They are about the same after a a night on BIPAP> She is now on 1.5 liters. However she is not responding with any verbal communication or improvement in neuro function She appears vey frail and seems that if this is not her baseline she may need a head CT to determin if she had CVA or hypoic brain injury. (2) CAP (community acquired pneumonia) Assessment/Plan: CXR does not show much change. O2 need is down now on 1.5 liters. (3) Encephalopathy Assessment/Plan: This is a major problem as noted above. Will have family conference and decide on Head CT (4) Atrial fibrillation with RVR Assessment/Plan: She is back in AFIB She is in high 90s. Will continue Digoxin. - Current Meds Current Meds: Current Medications Generic Name Dose Route Start Last Admin Trade Name Freq PRN Reason Stop Dose Admin Albuterol/Ipratropium 3 ml 08/05/16 01:00 08/07/16 07:45 Duoneb INH 3 ml RTQ6H MOSES Administration Atenolol 50 mg 08/05/16 09:00 08/07/16 09:45 Tenormin PO Not Given BID MOSES Chlorhexidine Gluconate 15 ml 08/05/16 09:00 08/07/16 09:45 Peridex PO Not Given BID MOSES Clopidogrel Bisulfate 75 mg 08/05/16 09:00 08/07/16 09:45 Plavix PO Not Given DAILY MOSES Enoxaparin Sodium 40 mg 08/05/16 09:00 08/07/16 09:41 Lovenox SUBQ 40 mg DAILY MOSES Administration Famotidine 50 mls @ 100 mls/hr 08/05/16 09:00 08/07/16 09:39 Pepcid 20 Mg/50 Ml IV 100 mls/hr DAILY MOSES Administration Levofloxacin 150 mls @ 100 mls/hr 08/05/16 01:47 08/07/16 01:17 Levaquin 750 Mg/150 Ml IV 100 mls/hr Q48H MOSES Administration Piperacillin Sod/Tazobactam 100 mls @ 200 mls/hr 08/05/16 06:00 08/07/16 05:19 Sod 2.25 gm/ Sodium Chloride IV 200 mls/hr Q6H MOSES Administration Dextrose 1,000 mls @ 100 mls/hr 08/06/16 06:00 08/07/16 03:07 D5w IV 100 mls/hr .Q10H MOSES Administration Lorazepam 0.5 mg 08/04/16 23:27 08/07/16 03:27 Ativan Inj IVP 0.5 mg Q2HR PRN Administration Anxiety Methylprednisolone 40 mg 08/06/16 14:00 08/07/16 05:09 Solu-Medrol (40mg Vial) IVP 40 mg Q8HR MOSES Administration Metoprolol Tartrate 5 mg 08/06/16 12:00 08/06/16 12:08 Lopressor Inj IVP 5 mg Q6H PRN Administration Tachycardia Morphine Sulfate 2 mg 08/05/16 19:35 08/07/16 05:24 Morphine IVP 2 mg Q2HR PRN Administration PAIN Sodium Chloride 10 ml 08/05/16 06:00 08/07/16 05:09 Normal Saline Flush 0.9% IVP 10 ml Q8HR MOSES Administration - Lab Result Fish Bone Diagrams: 08/07/16 05:01 08/07/16 05:01 - Additional Planning My Orders: My Active Orders 08/06/16 12:00 Metoprolol Inj [Lopressor Inj] 5 mg IVP Q6H PRN 08/06/16 14:00 methylPREDNISolone SUCCINATE [SOLU-Medrol (40MG VIAL)] 40 mg IVP Q8HR 08/07/16 05:28 ABG - ARTERIAL BLOOD GAS [BG] Stat 08/07/16 11:00 Digoxin Inj [Lanoxin Inj] 250 mcg IVP DAILY FUROSEMIDE INJ 40mg VIAL [LASIX INJ 40 mg VIAL] 40 mg IVP DAILY Subjective - Subjective Patient Reports: Resting Comfortably Nursing Reports: Confused Objective Vital Signs: Vital Signs - 24 hr 08/06/16 08/06/16 08/06/16 10:58 11:58 12:00 Temperature 36.4 C L Heart Rate 68 Heart Rate [ 81 132 H Monitoring electrodes] Respiratory 24 31 H Rate Blood Pressure Blood Pressure 135/60 H 132/75 H [Right Brachial artery] O2 Saturation 93 98 08/06/16 08/06/16 08/06/16 12:08 12:36 12:38 Temperature Heart Rate Heart Rate [ Monitoring electrodes] Respiratory Rate Blood Pressure 144/66 H 126/78 122/63 Blood Pressure [Right Brachial artery] O2 Saturation 08/06/16 08/06/16 08/06/16 13:00 13:18 13:19 Temperature Heart Rate 135 H 144 H Heart Rate [ 136 H Monitoring electrodes] Respiratory 20 18 Rate Blood Pressure Blood Pressure 122/71 [Right Brachial artery] O2 Saturation 94 08/06/16 08/06/16 08/06/16 14:00 14:28 14:36 Temperature 36.7 C Heart Rate Heart Rate [ 132 H 143 H Monitoring electrodes] Respiratory 27 H Rate Blood Pressure 115/68 Blood Pressure 102/56 L 105/64 [Right Brachial artery] O2 Saturation 98 08/06/16 08/06/16 08/06/16 14:58 15:01 15:26 Temperature Heart Rate 105 H 146 H Heart Rate [ 124 H Monitoring electrodes] Respiratory 28 H Rate Blood Pressure Blood Pressure 104/56 L [Right Brachial artery] O2 Saturation 96 08/06/16 08/06/16 08/06/16 15:58 17:00 18:00 Temperature 36.3 C L Heart Rate Heart Rate [ 76 71 72 Monitoring electrodes] Respiratory 21 30 H 25 H Rate Blood Pressure Blood Pressure 109/55 L 119/55 L 139/52 H [Right Brachial artery] O2 Saturation 96 99 99 08/06/16 08/06/16 08/06/16 18:26 18:30 18:46 Temperature Heart Rate 74 74 Heart Rate [ 74 Monitoring electrodes] Respiratory 26 H 28 H Rate Blood Pressure Blood Pressure 132/56 H [Right Brachial artery] O2 Saturation 99 08/06/16 08/06/16 08/06/16 19:55 20:00 21:00 Temperature 35.5 C L Heart Rate 76 Heart Rate [ 95 107 H Monitoring electrodes] Respiratory 18 20 Rate Blood Pressure Blood Pressure 156/85 H 154/97 H [Right Brachial artery] O2 Saturation 98 97 08/06/16 08/06/16 08/06/16 22:00 22:05 23:00 Temperature Heart Rate 135 H Heart Rate [ 98 105 H Monitoring electrodes] Respiratory 18 20 Rate Blood Pressure Blood Pressure 143/97 H 153/65 H [Right Brachial artery] O2 Saturation 94 94 05/11/17 05/12/17 05/12/17 23:50 00:00 01:00 Temperature 35.9 C L Heart Rate 99 Heart Rate [ 111 H 80 Monitoring electrodes] Respiratory 23 20 Rate Blood Pressure Blood Pressure 153/65 H 156/68 H [Right Brachial artery] O2 Saturation 94 98 08/07/16 08/07/16 08/07/16 02:00 02:10 02:15 Temperature Heart Rate 111 H 99 Heart Rate [ 90 Monitoring electrodes] Respiratory 18 20 Rate Blood Pressure Blood Pressure 135/62 H [Right Brachial artery] O2 Saturation 94 08/07/16 08/07/16 08/07/16 03:00 04:00 04:20 Temperature 35.9 C L Heart Rate 103 H Heart Rate [ 80 93 Monitoring electrodes] Respiratory 21 20 Rate Blood Pressure Blood Pressure 135/69 H 135/69 H [Right Brachial artery] O2 Saturation 96 96 08/07/16 08/07/16 08/07/16 05:00 06:00 07:00 Temperature Heart Rate Heart Rate [ 75 79 79 Monitoring electrodes] Respiratory 18 20 20 Rate Blood Pressure Blood Pressure 112/76 112/72 131/62 H [Right Brachial artery] O2 Saturation 96 96 98 08/07/16 08/07/16 08/07/16 07:47 07:49 09:00 Temperature 37.0 C Heart Rate 102 H Heart Rate [ 111 H 98 100 Monitoring electrodes] Respiratory 18 14 23 Rate Blood Pressure Blood Pressure 150/65 H 150/65 H 132/57 H [Right Brachial artery] O2 Saturation 100 100 100 08/07/16 10:00 Temperature Heart Rate Heart Rate [ 117 H Monitoring electrodes] Respiratory 22 Rate Blood Pressure Blood Pressure 122/63 [Right Brachial artery] O2 Saturation 99 Oxygen O2 Source Nasal cannula I&O (Last 24 Hrs): Intake and Output Totals x24h 08/05/16 08/06/16 08/07/16 23:59 23:59 23:59 Intake Total 2910 2550 1050 Output Total 710 607 390 Balance 2200 1943 660 General: Alert HEENT: PERRLA, EOMI Neck: No JVD, No thyromegaly Neuro: Disoriented Cardiovascular: Other (A fib) Respiratory: No respiratory distress, Breath sounds nml Abdomen: Soft, No tenderness Extremities: No clubbing, No edema - Results Results: Laboratory Results WBC 25.7 x10^3/uL (4.8-10.8) H 08/07/16 05:01 RBC 2.89 10^6/uL (4.20-5.40) L 08/07/16 05:01 Hgb 7.4 g/dL (12.0-16.0) L 08/07/16 05:01 Hct 25.0 % (37.0-47.0) L 08/07/16 05:01 MCV 86.4 fL (81.0-99.0) 08/07/16 05:01 MCH 25.6 pg (27.0-31.0) L 08/07/16 05:01 MCHC 29.7 g/dL (32.0-36.0) L 08/07/16 05:01 RDW 18.6 % (12.0-15.0) H 08/07/16 05:01 Plt Count 376 10^3/uL (130-450) 08/07/16 05:01 MPV 7.8 fL (7.9-10.8) L 08/07/16 05:01 Neut # Not Reportable 08/07/16 05:01 Lymph # Not Reportable 08/07/16 05:01 [place] # Not Reportable 08/07/16 05:01 Eos # Not Reportable 08/07/16 05:01 Baso # Not Reportable 08/07/16 05:01 Absolute Nucleated RBC Not Reportable 08/07/16 05:01 Total Counted 100 08/07/16 05:01 Band Neuts % (Manual) 27 % (0-10) H 08/07/16 05:01 Neutrophils # (Manual) 23.4 10^3/uL (1.5-6.6) H 08/07/16 05:01 Lymphocytes # (Manual) 1.3 10^3/uL (1.5-3.5) L 08/07/16 05:01 Monocytes # (Manual) 1.0 10^3/uL (0.0-1.0) 08/07/16 05:01 Nucleated RBCs Not Reportable 08/07/16 05:01 Differential Comment MANUAL DIFFERENTIAL 08/07/16 05:01 Manual Slide Review Indicated 08/05/16 04:57 Platelet Estimate NORMAL (130-450,000) (NORMAL) 08/07/16 05:01 Platelet Morphology NORMAL APPEARANCE (NORMAL) 08/05/16 04:57 RBC Morph Micro Appear NORMAL APPEARANCE (NORMAL) 08/06/16 04:58 RBC Morph Micro Appear 1+ ANISOCYTOSIS (NORMAL) 1+ HYPOCHROMASIA (NORMAL) 1+ OVALOCYTES (NORMAL) 08/07/16 05:01 RBC Morph Micro Appear 1+ ANISOCYTOSIS (NORMAL) 1+ HYPOCHROMASIA (NORMAL) 1+ OVALOCYTES (NORMAL) 08/07/16 05:01 RBC Morph Micro Appear 1+ ANISOCYTOSIS (NORMAL) 1+ HYPOCHROMASIA (NORMAL) 1+ OVALOCYTES (NORMAL) 08/07/16 05:01 PT 12.3 secs (9.9-12.6) 08/05/16 08:35 INR 1.1 (0.8-1.2) 08/05/16 08:35 Bld Gas Analysis Time 0516 08/07/16 05:07 Sample Site LEFT BRACHIAL 08/07/16 05:07 ABG pH 7.35 (7.35-7.45) 08/07/16 05:07 ABG pCO2 57 mmHg (34-45) H 08/07/16 05:07 ABG pO2 77 mmHg (80-100) L 08/07/16 05:07 ABG HCO3 30.4 mmol/L (22.0-26.0) H 08/07/16 05:07 ABG Total CO2 32.2 MMOL/L (21.0-29.0) H 08/07/16 05:07 ABG O2 Saturation 95 % (94-98) 08/07/16 05:07 ABG Oximetry Spot Check 99 % 08/06/16 05:15 ABG Base Excess 4.1 mmol/L (-2.0-3.0) H 08/07/16 05:07 Sam Test NOT APPLICABLE 08/07/16 05:07 VBG pH 7.096 (7.31-7.41) L 08/04/16 20:15 VBG pCO2 100.7 mmHg (41-51) H 08/04/16 20:15 VBG pO2 40.0 mmHg (25-47) 08/04/16 20:15 VBG HCO3 30.3 mmol/L (23-28) H 08/04/16 20:15 VBG Total CO2 33.4 mmol/L (24-29) H 08/04/16 20:15 VBG O2 Saturation 62.4 % (60-80) 08/04/16 20:15 VBG Base Excess -1.3 mmol/L (-2 - +2) 08/04/16 20:15 Respiration Rate 14 b/min 08/06/16 05:15 O2 Delivery Device BiPAP 08/07/16 05:07 Vent Mode SYNCHRONOUS/TIMES 08/06/16 05:15 FiO2 30.00 08/07/16 05:07 Pressure Support Vent 8 cmH2O 08/06/16 05:15 EPAP 4 cmH2O 08/07/16 05:07 IPAP 10 cmH2O 08/07/16 05:07 Sodium 145 mmol/L (135-145) 08/07/16 05:01 Potassium 3.7 mmol/L (3.5-5.0) 08/07/16 05:01 Chloride 107 mmol/L (101-111) 08/07/16 05:01 Carbon Dioxide 31 mmol/L (21-32) 08/07/16 05:01 Anion Gap 7.0 (6-13) 08/07/16 05:01 BUN 39 mg/dL (6-20) H 08/07/16 05:01 Creatinine 1.6 mg/dL (0.4-1.0) H 08/07/16 05:01 Estimated GFR (MDRD) 31 (>89) L 08/07/16 05:01 Glucose 144 mg/dL (70-100) H 08/07/16 05:01 Lactic Acid 1.2 mmol/L (0.5-2.2) 08/04/16 16:23 Calcium 9.0 mg/dL (8.5-10.3) 08/07/16 05:01 Phosphorus 1.8 mg/dL (2.5-4.6) L 08/07/16 05:01 Magnesium 2.0 mg/dL (1.7-2.8) 08/07/16 05:01 Total Bilirubin 0.2 mg/dL (0.2-1.0) 08/07/16 05:01 AST 184 IU/L (10-42) H 08/07/16 05:01 ALT 312 IU/L (10-60) H 08/07/16 05:01 Alkaline Phosphatase 109 IU/L (42-121) 08/07/16 05:01 Ammonia 15.4 umol/L (7-35) 08/06/16 04:58 Total Creatine Kinase 247 IU/L (22-269) 08/06/16 04:58 Total Protein 5.3 g/dL (6.7-8.2) L 08/07/16 05:01 Albumin 2.3 g/dL (3.2-5.5) L 08/07/16 05:01 Globulin 3.0 g/dL (2.1-4.2) 08/07/16 05:01 Albumin/Globulin Ratio 0.8 (1.0-2.2) L 08/07/16 05:01 Triglycerides 111 mg/dL (-149) 08/06/16 04:58 Cholesterol 116 mg/dL (-199) 08/06/16 04:58 LDL Cholesterol, Calc 58 mg/dL (-129) 08/06/16 04:58 VLDL Cholesterol 22 mg/dL 08/06/16 04:58 HDL Cholesterol 36 mg/dL (60-) L 08/06/16 04:58 LDL/HDL Ratio 1.6 (<4.4) 08/06/16 04:58 Cholesterol/HDL Ratio 3.2 (<4.4) 08/06/16 04:58 Lipase 96 U/L (22-51) H 08/06/16 04:58 Urine Color YELLOW 08/04/16 16:40 Urine Clarity CLEAR (CLEAR) 08/04/16 16:40 Urine pH 6.0 PH (5.0-7.5) 08/04/16 16:40 Ur Specific [place] >=1.030 (1.002-1.030) H 08/04/16 16:40 Urine Protein 100 mg/dL (NEGATIVE) H 08/04/16 16:40 Urine Glucose (UA) NEGATIVE mg/dL (NEGATIVE) 08/04/16 16:40 Urine Ketones NEGATIVE mg/dL (NEGATIVE) 08/04/16 16:40 Urine Occult Blood SMALL (NEGATIVE) H 08/04/16 16:40 Urine Nitrite NEGATIVE (NEGATIVE) 08/04/16 16:40 Urine Bilirubin NEGATIVE (NEGATIVE) 08/04/16 16:40 Urine Urobilinogen 0.2 (NORMAL) E.U./dL (NORMAL) 08/04/16 16:40 Ur Leukocyte Esterase NEGATIVE (NEGATIVE) 08/04/16 16:40 Urine RBC None Seen /HPF (0-5) 08/04/16 16:40 Urine WBC 0-3 /HPF (0-5) 08/04/16 16:40 Ur Squamous Epith Cells NONE SEEN (<= Few) 08/04/16 16:40 Urine Crystals 0-2 Uric Acid /LPF 08/04/16 16:40 Urine Bacteria Few /HPF (None Seen) 08/04/16 16:40 Urine Casts 0-2 Hyaline Casts /LPF 08/04/16 16:40 Urine Mucus Few Strands 08/04/16 16:40 Ur Microscopic Review INDICATED 08/04/16 16:40 Urine Culture Comments NOT INDICATED 08/04/16 16:40 Last Dose Date K 08/07/16 05:01 Last Dose Time [facility] 08/07/16 05:01 Digoxin 1.4 ng/mL 08/07/16 05:01
[2016-08-07] MEDS: FUROSEMIDE 40 MG/4 ML VIAL IVP SCH (11:22)
[2016-08-07] MEDS: DIGOXIN 500 MCG/2 ML AMP IVP SCH (11:24)
[2016-08-07] MEDS ORDERED: HALOPERIDOL 5 MG/ML VIAL IM ONE (12:00)
[2016-08-07] MEDS: METOPROLOL 5 MG/5 ML VIAL IVP PRN ×3 (12:34→22:31)
[2016-08-07] MEDS ORDERED: LORazepam 2 MG/ML SYRINGE IVP ONE (15:00)
[2016-08-07 16:17] LABS: ABG ANALYSIS TIME 1615; ABG PCO2 56 mmHg (34-45); ABG PH 7.38 (7.35-7.45)
[2016-08-07 16:18] LABS: ABG BASE EXCESS 6.4 mmol/L (-2.0-3.0); ABG HCO3 32.5 mmol/L (22.0-26.0); ABG SITE OF DRAW LEFT BRACHIAL; ABG TCO2 34.3 MMOL/L (21.0-29.0)
[2016-08-07 16:19] LABS: ABG O2 DEVICE NASAL CANNULA
[2016-08-07 16:25] LABS: ABG OXYGEN SATURATION 87 % (94-98); ABG PO2 53 mmHg (80-100)
[2016-08-07] MEDS ORDERED: METOPROLOL 5 MG/5 ML VIAL IVP STA (16:40)
--- NOTE | 2016-08-07 16:46 | CT Report ---
CT BRAIN WITHOUT CONTRAST: 08/07/2016 CLINICAL INDICATION: Prolonged coma. COMPARISON: 08/04/2016 TECHNIQUE: Axial CT images of the brain were obtained without contrast. In accordance with CT protocol optimization, one or more of the following dose reduction techniques w ere utilized for this exam: automated exposure control, adjustment of mA and/or KV based on patient size, or use of iterative reconstructive technique. FINDINGS: The ventricles and sulci again demonstrate symmetric enlargement, compatible with atrophy. Chronic ischemic changes in the periventricular white matter structures are unchanged. There is no evidence of interval hemorrhage, mass effect, or midline shift. The basilar cisterns remain patent. The visualized orbital contents and paranasal sinuses are unremarkable. IMPRESSION: STABLE ATROPHY AND CHRONIC ISCHEMIC CHANGES. NO SIGNIFICANT INTERVAL CHANGE FROM 2016. JOB #: [id number] [id number] JOB #:[id number]
[2016-08-07] MEDS: SODIUM CHLORIDE FLUSH 0.9% 10 ML SYRINGE IVP PRN ×2 (19:25→20:01)
[2016-08-08] MEDS ORDERED: DIGOXIN 500 MCG/2 ML AMP IVP SCH (00:14)
[2016-08-08] MEDS: IPRATROPIUM/ALBUTEROL 3 ML NEB INH SCH ×2 (00:40→09:30)
[2016-08-08] MEDS: diltiaZEM INJ 5 MG/ML VIAL IVP PRN ×2 (01:01→01:20)
[2016-08-08] MEDS ORDERED: diltiaZEM INJ 125 MG in DEXTROSE 5% 100 ML IV ONE (01:36)
[2016-08-08] MEDS: DEXTROSE 5% 1,000 ML IV SCH ×2 (01:40→08:11)
[2016-08-08] MEDS: MORPHINE 2 MG/ML SYRINGE IVP PRN ×7 (02:15→23:54)
[2016-08-08] MEDS: LORazepam 2 MG/ML SYRINGE IVP PRN ×4 (02:23→21:41)
[2016-08-08 03:17] LABS: BASOPHILS % (AUTO) 0.1 %; HCT - HEMATOCRIT 24.6 % (37.0-47.0); HGB - HEMOGLOBIN 7.5 g/dL (12.0-16.0); LYMPHOCYTES % (AUTO) 1.1 %; MEAN CORPUSCULAR HEMOGLOBIN 25.5 pg (27.0-31.0); MEAN CORPUSCULAR HGB CONC 30.3 g/dL (32.0-36.0); MEAN PLATELET VOLUME 7.6 fL (7.9-10.8); MONOCYTES % (AUTO) 2.4 %; NEUTROPHILS % (AUTO) 96.4 %; RED BLOOD COUNT 2.93 10^6/uL (4.20-5.40); RED CELL DISTRIBUTION WIDTH 18.9 % (12.0-15.0); UNCORRECTED WHITE BLOOD COUNT 22.9 x10^3/uL; WHITE BLOOD COUNT 22.9 x10^3/uL (4.8-10.8)
[2016-08-08 03:30] LABS: ALBUMIN/GLOBULIN RATIO 0.8 (1.0-2.2); BILIRUBIN,TOTAL 0.3 mg/dL (0.2-1.0); CALCIUM 8.9 mg/dL (8.5-10.3); CREATININE 1.7 mg/dL (0.4-1.0); MAGNESIUM 1.7 mg/dL (1.7-2.8); PHOSPHORUS 2.6 mg/dL (2.5-4.6); POTASSIUM 3.2 mmol/L (3.5-5.0); TOTAL PROTEIN 5.4 g/dL (6.7-8.2)
[2016-08-08] MEDS ORDERED: MAGNESIUM SULFATE 2 GRAM 50 ML IV ONE (03:40)
[2016-08-08] MEDS: METOPROLOL 5 MG/5 ML VIAL IVP PRN (03:50)
[2016-08-08 04:02] LABS: BAND NEUTROPHILS % (MANUAL) 18 %; LYMPHOCYTES % (MANUAL) 4 %; NEUTROPHILS % (MANUAL) 72 %; TOTAL CELLS COUNTED 100
[2016-08-08 04:03] LABS: NP AUTO DIFFERENTIAL? YES; NP MAN DIFFERENTIAL? NO; PLATELET ESTIMATE, MANUAL NORMAL (130-450,000) (NORMAL)
[2016-08-08] MEDS: POTASSIUM CHLOR 10 MEQ/100 ML 100 ML IV SCH ×4 (04:46→09:24)
[2016-08-08] MEDS: methylPREDNISolone SUCCINATE 40 MG/ML VIAL IVP SCH ×2 (05:19→12:32)
[2016-08-08] MEDS: SODIUM CHLORIDE FLUSH 0.9% 10 ML SYRINGE IVP SCH ×2 (05:19→12:33)
[2016-08-08] MEDS: PIPERACILLIN/TAZOBACTAM 2.25 GM in SODIUM CHLORIDE 0.9% MINIBAG 100 ML IV SCH ×2 (05:37→12:29)
--- NOTE | 2016-08-08 07:38 | PROVIDER PROGRESS NOTE ---
Assessment/Plan - Problem List (1) Acute and chronic respiratory failure with hypercapnia Assessment/Plan: Sharon was on BIPAP last night and had to have FIO2 increased to 40%. Yesterday she was on the nasal cannula and had best AVG with PCO2 down to 53 and a pH of 7.38. She was on only 1 1/2 liters at that time. She did have resumption of RVR yesterday afternoon and then had to go back on the BIPAP As a result of her chronic lung disease she has developed High R hEART PRESSURES. SHE HAS PRESERVED HER LVEF. She also has mod Mitral regurg. In summary it seems that she needs to be rate controlled to optimize the function of her compromized lung function. It would seem at best a home CPAP or BIPAP would be necessary. ALL that is further compromized by her severely deteriorated mental function. (2) CAP (community acquired pneumonia) Assessment/Plan: CXR yesterday shows no improvement. Her FIO2 was improved yesterday over her admission. Last night she needed higher O2 ie. 40%.Will see if can lower again today. Will also do a trial off the BIPAP today. (3) Encephalopathy Assessment/Plan: This is the core issue. She has not improved, she moves extremities, moans but does not respond but minimally and does not even follow simple commands. The head CT was nml, no change from admission. Need to have family conference to decide if to transition to comfort care. (4) Atrial fibrillation with RVR Assessment/Plan: She is now on three meds to control her rate. If going to transition to oral meds need to have feeding tube of some kind, larger bore if going to be able to use it for meds. - Current Meds Current Meds: Current Medications Generic Name Dose Route Start Last Admin Trade Name Freq PRN Reason Stop Dose Admin Albuterol/Ipratropium 3 ml 08/05/16 01:00 08/08/16 00:40 Duoneb INH 3 ml RTQ6H MOSES Administration Atenolol 50 mg 08/05/16 09:00 08/07/16 20:45 Tenormin PO Not Given BID MOSES Chlorhexidine Gluconate 15 ml 08/05/16 09:00 08/07/16 21:21 Peridex PO 15 ml BID MOSES Administration Clopidogrel Bisulfate 75 mg 08/05/16 09:00 08/07/16 09:45 Plavix PO Not Given DAILY MOSES Digoxin 250 mcg 08/07/16 11:00 08/07/16 11:24 Lanoxin Inj IVP 250 mcg DAILY MOSES Administration Diltiazem HCl 2.5 mg 08/08/16 00:14 08/08/16 01:20 Cardizem Inj IVP 2.5 mg Q4H PRN Administration Tachycardia Enoxaparin Sodium 40 mg 08/05/16 09:00 08/07/16 09:41 Lovenox SUBQ 40 mg DAILY MOSES Administration Furosemide 40 mg 08/07/16 11:00 08/07/16 11:22 Lasix Inj 40 Mg Vial IVP 40 mg DAILY MOSES Administration Famotidine 50 mls @ 100 mls/hr 08/05/16 09:00 08/07/16 09:39 Pepcid 20 Mg/50 Ml IV 100 mls/hr DAILY MOSES Administration Levofloxacin 150 mls @ 100 mls/hr 08/05/16 01:47 08/07/16 01:17 Levaquin 750 Mg/150 Ml IV 100 mls/hr Q48H MOSES Administration Piperacillin Sod/Tazobactam 100 mls @ 200 mls/hr 08/05/16 06:00 08/08/16 05:37 Sod 2.25 gm/ Sodium Chloride IV 200 mls/hr Q6H MOSES Administration Diltiazem HCl 125 mg/ Dextrose 125 mls @ 5 mls/hr 08/08/16 01:36 08/08/16 05:20 IV 08/09/16 02:35 5 mg/hr .Q25H ONE Titration Protocol 5 MG/HR Dextrose 1,000 mls @ 50 mls/hr 08/08/16 01:38 08/08/16 01:40 D5w IV 50 mls/hr .Q20H MOSES Administration Potassium Chloride 100 mls @ 100 mls/hr 08/08/16 04:00 08/08/16 06:51 Potassium Chloride IV 08/08/16 07:59 100 mls/hr Q1H MOSES Administration Protocol Lorazepam 0.5 mg 08/04/16 23:27 08/08/16 02:23 Ativan Inj IVP 0.5 mg Q2HR PRN Administration Anxiety Methylprednisolone 40 mg 08/06/16 14:00 08/08/16 05:19 Solu-Medrol (40mg Vial) IVP 40 mg Q8HR MOSES Administration Metoprolol Tartrate 5 mg 08/07/16 20:34 08/08/16 03:50 Lopressor Inj IVP 5 mg Q4H PRN Administration Tachycardia Morphine Sulfate 2 mg 08/05/16 19:35 08/08/16 02:15 Morphine IVP 2 mg Q2HR PRN Administration PAIN Sodium Chloride 10 ml 08/04/16 23:27 08/07/16 20:01 Normal Saline Flush 0.9% IVP 10 ml PRN PRN Administration NEEDED PER PROVIDER ORDERS Sodium Chloride 10 ml 08/05/16 06:00 08/08/16 05:19 Normal Saline Flush 0.9% IVP 10 ml Q8HR MOSES Administration - Lab Result Fish Bone Diagrams: 08/08/16 03:10 08/08/16 03:10 - Additional Planning My Orders: My Active Orders 08/07/16 11:00 Digoxin Inj [Lanoxin Inj] 250 mcg IVP DAILY FUROSEMIDE INJ 40mg VIAL [LASIX INJ 40 mg VIAL] 40 mg IVP DAILY 08/08/16 04:00 Potassium Chlor 10 Meq/100 ml [Potassium Chloride] 100 ml IV Q1H Subjective - Subjective Patient Reports: Resting Comfortably, Pain Objective Vital Signs: Vital Signs - 24 hr 08/07/16 08/07/16 08/07/16 07:47 07:49 09:00 Temperature 37.0 C Heart Rate 102 H Heart Rate [ 111 H 98 100 Monitoring electrodes] Respiratory 18 14 23 Rate Blood Pressure Blood Pressure 150/65 H 150/65 H 132/57 H [Right Brachial artery] O2 Saturation 100 100 100 08/07/16 08/07/16 08/07/16 10:00 11:00 11:24 Temperature Heart Rate 140 H Heart Rate [ 117 H 75 Monitoring electrodes] Respiratory 22 87 H Rate Blood Pressure Blood Pressure 122/63 141/101 H [Right Brachial artery] O2 Saturation 99 19 L 08/07/16 08/07/16 08/07/16 12:00 12:34 12:47 Temperature Heart Rate Heart Rate [ 123 H 116 H Monitoring electrodes] Respiratory 20 23 Rate Blood Pressure 133/76 H Blood Pressure 145/68 H 113/56 L [Right Brachial artery] O2 Saturation 92 92 08/07/16 08/07/16 08/07/16 13:04 13:09 13:57 Temperature Heart Rate 107 H Heart Rate [ 106 H Monitoring electrodes] Respiratory 20 29 H Rate Blood Pressure 161/86 H Blood Pressure 111/94 H [Right Brachial artery] O2 Saturation 93 08/07/16 08/07/16 08/07/16 15:00 16:00 16:30 Temperature 36.6 C Heart Rate 146 H Heart Rate [ 132 H 146 H Monitoring electrodes] Respiratory 14 26 H Rate Blood Pressure Blood Pressure 133/90 H 137/78 H [Right Brachial artery] O2 Saturation 91 L 08/07/16 08/07/16 08/07/16 16:46 16:49 17:00 Temperature 36.5 C Heart Rate 136 H Heart Rate [ 144 H Monitoring electrodes] Respiratory 26 H 21 Rate Blood Pressure 124/85 H Blood Pressure 117/68 [Right Brachial artery] O2 Saturation 93 08/07/16 08/07/16 08/07/16 18:00 18:30 18:56 Temperature Heart Rate 93 Heart Rate [ 147 H 93 Monitoring electrodes] Respiratory 17 18 Rate Blood Pressure 123/76 Blood Pressure 123/76 123/76 [Right Brachial artery] O2 Saturation 95 95 08/07/16 08/07/16 08/07/16 19:00 19:21 20:00 Temperature 36.8 C Heart Rate Heart Rate [ 80 120 H Monitoring electrodes] Respiratory 17 25 H Rate Blood Pressure 147/78 H Blood Pressure 147/78 H 150/80 H [Right Brachial artery] O2 Saturation 91 L 93 08/07/16 08/07/16 08/07/16 20:30 21:00 22:30 Temperature Heart Rate 125 H 119 H Heart Rate [ 143 H Monitoring electrodes] Respiratory 25 H Rate Blood Pressure Blood Pressure 126/70 [Right Brachial artery] O2 Saturation 91 L 08/07/16 08/07/16 08/07/16 22:31 22:35 22:55 Temperature Heart Rate Heart Rate [ 119 H 115 H Monitoring electrodes] Respiratory 20 19 Rate Blood Pressure 125/80 Blood Pressure 125/80 129/80 [Right Brachial artery] O2 Saturation 93 24 L 08/07/16 08/08/16 08/08/16 23:01 00:00 00:30 Temperature 36.1 C L Heart Rate 110 H Heart Rate [ 130 H Monitoring electrodes] Respiratory 16 Rate Blood Pressure 140/65 H Blood Pressure 120/66 [Right Brachial artery] O2 Saturation 92 08/08/16 08/08/16 08/08/16 00:35 00:40 01:00 Temperature Heart Rate 137 H 115 H Heart Rate [ 140 H Monitoring electrodes] Respiratory 18 19 Rate Blood Pressure Blood Pressure 113/65 [Right Brachial artery] O2 Saturation 94 08/08/16 08/08/16 08/08/16 01:01 01:17 01:20 Temperature Heart Rate Heart Rate [ Monitoring electrodes] Respiratory Rate Blood Pressure 113/65 124/76 117/73 Blood Pressure [Right Brachial artery] O2 Saturation 08/08/16 08/08/16 08/08/16 01:35 01:59 02:00 Temperature Heart Rate Heart Rate [ 145 H Monitoring electrodes] Respiratory 20 Rate Blood Pressure 117/73 129/72 Blood Pressure 123/68 [Right Brachial artery] O2 Saturation 93 08/08/16 08/08/16 08/08/16 02:30 03:00 03:50 Temperature 36.1 C L Heart Rate 117 H Heart Rate [ 130 H Monitoring electrodes] Respiratory 23 Rate Blood Pressure 129/67 Blood Pressure 107/54 L [Right Brachial artery] O2 Saturation 94 08/08/16 08/08/16 08/08/16 04:00 04:20 04:30 Temperature Heart Rate 102 H Heart Rate [ 111 H Monitoring electrodes] Respiratory 22 Rate Blood Pressure 127/64 Blood Pressure 127/68 [Right Brachial artery] O2 Saturation 89 L 08/08/16 08/08/16 08/08/16 05:00 06:00 07:00 Temperature Heart Rate Heart Rate [ 90 88 98 Monitoring electrodes] Respiratory 18 18 21 Rate Blood Pressure Blood Pressure 119/51 L 111/50 L 149/83 H [Right Brachial artery] O2 Saturation 93 95 99 Oxygen O2 Source BIPAP I&O (Last 24 Hrs): Intake and Output Totals x24h 08/06/16 08/07/16 08/08/16 23:59 23:59 23:59 Intake Total 8770 3593 785 Output Total 323 4845 725 Balance 1943 -112 60 HEENT: PERRLA, EOMI Neck: No JVD, No thyromegaly Neuro: Disoriented, Non Focal Cardiovascular: Other (A fib in the 90s) Respiratory: Chest non-tender, No respiratory distress, Breath sounds nml Extremities: No cyanosis, No edema Skin: No rashes, No breakdown - Results Results: Laboratory Results WBC 22.9 x10^3/uL (4.8-10.8) H 08/08/16 03:10 RBC 2.93 10^6/uL (4.20-5.40) L 08/08/16 03:10 Hgb 7.5 g/dL (12.0-16.0) L 08/08/16 03:10 Hct 24.6 % (37.0-47.0) L 08/08/16 03:10 MCV 84.0 fL (81.0-99.0) 08/08/16 03:10 MCH 25.5 pg (27.0-31.0) L 08/08/16 03:10 MCHC 30.3 g/dL (32.0-36.0) L 08/08/16 03:10 RDW 18.9 % (12.0-15.0) H 08/08/16 03:10 Plt Count 348 10^3/uL (130-450) 08/08/16 03:10 MPV 7.6 fL (7.9-10.8) L 08/08/16 03:10 Neut # Not Reportable 08/08/16 03:10 Lymph # Not Reportable 08/08/16 03:10 Bland # Not Reportable 08/08/16 03:10 Eos # Not Reportable 08/08/16 03:10 Baso # Not Reportable 08/08/16 03:10 Absolute Nucleated RBC Not Reportable 08/08/16 03:10 Total Counted 100 08/08/16 03:10 Band Neuts % (Manual) 18 % (0-10) H 08/08/16 03:10 Metamyelocytes % 1 % (-0) H 08/08/16 03:10 Myelocytes % 2 % (-0) H 08/08/16 03:10 Neutrophils # (Manual) 20.6 10^3/uL (1.5-6.6) H 08/08/16 03:10 Lymphocytes # (Manual) 0.9 10^3/uL (1.5-3.5) L 08/08/16 03:10 Monocytes # (Manual) 0.7 10^3/uL (0.0-1.0) 08/08/16 03:10 Nucleated RBCs 2 % 08/08/16 03:10 Differential Comment MANUAL DIFFERENTIAL 08/08/16 03:10 Manual Slide Review Indicated 08/05/16 04:57 Platelet Estimate NORMAL (130-450,000) (NORMAL) 08/08/16 03:10 Platelet Morphology NORMAL APPEARANCE (NORMAL) 08/05/16 04:57 RBC Morph Micro Appear 1+ ANISOCYTOSIS (NORMAL) 1+ HYPOCHROMASIA (NORMAL) 1+ OVALOCYTES (NORMAL) 08/07/16 05:01 RBC Morph Micro Appear 1+ ANISOCYTOSIS (NORMAL) 1+ HYPOCHROMASIA (NORMAL) 1+ OVALOCYTES (NORMAL) 08/07/16 05:01 RBC Morph Micro Appear 1+ ANISOCYTOSIS (NORMAL) 1+ HYPOCHROMASIA (NORMAL) 1+ OVALOCYTES (NORMAL) 08/07/16 05:01 RBC Morph Micro Appear 1+ ANISOCYTOSIS (NORMAL) 2+ HYPOCHROMASIA (NORMAL) 1+ POLYCHROMASIA (NORMAL) 1+ OVALOCYTES (NORMAL) 08/08/16 03:10 RBC Morph Micro Appear 1+ ANISOCYTOSIS (NORMAL) 2+ HYPOCHROMASIA (NORMAL) 1+ POLYCHROMASIA (NORMAL) 1+ OVALOCYTES (NORMAL) 08/08/16 03:10 RBC Morph Micro Appear 1+ ANISOCYTOSIS (NORMAL) 2+ HYPOCHROMASIA (NORMAL) 1+ POLYCHROMASIA (NORMAL) 1+ OVALOCYTES (NORMAL) 08/08/16 03:10 RBC Morph Micro Appear 1+ ANISOCYTOSIS (NORMAL) 2+ HYPOCHROMASIA (NORMAL) 1+ POLYCHROMASIA (NORMAL) 1+ OVALOCYTES (NORMAL) 08/08/16 03:10 PT 12.3 secs (9.9-12.6) 08/05/16 08:35 INR 1.1 (0.8-1.2) 08/05/16 08:35 Bld Gas Analysis Time 1615 08/07/16 16:05 Sample Site LEFT BRACHIAL 08/07/16 16:05 ABG pH 7.38 (7.35-7.45) 08/07/16 16:05 ABG pCO2 56 mmHg (34-45) H 08/07/16 16:05 ABG pO2 53 mmHg (80-100) L* 08/07/16 16:05 ABG HCO3 32.5 mmol/L (22.0-26.0) H 08/07/16 16:05 ABG Total CO2 34.3 MMOL/L (21.0-29.0) H 08/07/16 16:05 ABG O2 Saturation 87 % (94-98) L* 08/07/16 16:05 ABG Oximetry Spot Check 99 % 08/06/16 05:15 ABG Base Excess 6.4 mmol/L (-2.0-3.0) H 08/07/16 16:05 Sam Test NOT APPLICABLE 08/07/16 16:05 VBG pH 7.096 (7.31-7.41) L 08/04/16 20:15 VBG pCO2 100.7 mmHg (41-51) H 08/04/16 20:15 VBG pO2 40.0 mmHg (25-47) 08/04/16 20:15 VBG HCO3 30.3 mmol/L (23-28) H 08/04/16 20:15 VBG Total CO2 33.4 mmol/L (24-29) H 08/04/16 20:15 VBG O2 Saturation 62.4 % (60-80) 08/04/16 20:15 VBG Base Excess -1.3 mmol/L (-2 - +2) 08/04/16 20:15 Respiration Rate 14 b/min 08/06/16 05:15 O2 Delivery Device NASAL CANNULA 08/07/16 16:05 O2 Liters/Min 1.00 LPM 08/07/16 16:05 Vent Mode SYNCHRONOUS/TIMES 08/06/16 05:15 FiO2 30.00 08/07/16 05:07 Pressure Support Vent 8 cmH2O 08/06/16 05:15 EPAP 4 cmH2O 08/07/16 05:07 IPAP 10 cmH2O 08/07/16 05:07 Sodium 140 mmol/L (135-145) 08/08/16 03:10 Potassium 3.2 mmol/L (3.5-5.0) L 08/08/16 03:10 Chloride 96 mmol/L (101-111) L 08/08/16 03:10 Carbon Dioxide 35 mmol/L (21-32) H 08/08/16 03:10 Anion Gap 9.0 (6-13) 08/08/16 03:10 BUN 38 mg/dL (6-20) H 08/08/16 03:10 Creatinine 1.7 mg/dL (0.4-1.0) H 08/08/16 03:10 Estimated GFR (MDRD) 29 (>89) L 08/08/16 03:10 Glucose 142 mg/dL (70-100) H 08/08/16 03:10 Lactic Acid 1.2 mmol/L (0.5-2.2) 08/04/16 16:23 Calcium 8.9 mg/dL (8.5-10.3) 08/08/16 03:10 Phosphorus 2.6 mg/dL (2.5-4.6) 08/08/16 03:10 Magnesium 1.7 mg/dL (1.7-2.8) 08/08/16 03:10 Total Bilirubin 0.3 mg/dL (0.2-1.0) 08/08/16 03:10 AST 107 IU/L (10-42) H 08/08/16 03:10 ALT 242 IU/L (10-60) H 08/08/16 03:10 Alkaline Phosphatase 109 IU/L (42-121) 08/08/16 03:10 Ammonia 15.4 umol/L (7-35) 08/06/16 04:58 Total Creatine Kinase 247 IU/L (22-269) 08/06/16 04:58 Total Protein 5.4 g/dL (6.7-8.2) L 08/08/16 03:10 Albumin 2.4 g/dL (3.2-5.5) L 08/08/16 03:10 Globulin 3.0 g/dL (2.1-4.2) 08/08/16 03:10 Albumin/Globulin Ratio 0.8 (1.0-2.2) L 08/08/16 03:10 Triglycerides 111 mg/dL (-149) 08/06/16 04:58 Cholesterol 116 mg/dL (-199) 08/06/16 04:58 LDL Cholesterol, Calc 58 mg/dL (-129) 08/06/16 04:58 VLDL Cholesterol 22 mg/dL 08/06/16 04:58 HDL Cholesterol 36 mg/dL (60-) L 08/06/16 04:58 LDL/HDL Ratio 1.6 (<4.4) 08/06/16 04:58 Cholesterol/HDL Ratio 3.2 (<4.4) 08/06/16 04:58 Lipase 96 U/L (22-51) H 08/06/16 04:58 Urine Color YELLOW 08/04/16 16:40 Urine Clarity CLEAR (CLEAR) 08/04/16 16:40 Urine pH 6.0 PH (5.0-7.5) 08/04/16 16:40 Ur Specific [place] >=1.030 (1.002-1.030) H 08/04/16 16:40 Urine Protein 100 mg/dL (NEGATIVE) H 08/04/16 16:40 Urine Glucose (UA) NEGATIVE mg/dL (NEGATIVE) 08/04/16 16:40 Urine Ketones NEGATIVE mg/dL (NEGATIVE) 08/04/16 16:40 Urine Occult Blood SMALL (NEGATIVE) H 08/04/16 16:40 Urine Nitrite NEGATIVE (NEGATIVE) 08/04/16 16:40 Urine Bilirubin NEGATIVE (NEGATIVE) 08/04/16 16:40 Urine Urobilinogen 0.2 (NORMAL) E.U./dL (NORMAL) 08/04/16 16:40 Ur Leukocyte Esterase NEGATIVE (NEGATIVE) 08/04/16 16:40 Urine RBC None Seen /HPF (0-5) 08/04/16 16:40 Urine WBC 0-3 /HPF (0-5) 08/04/16 16:40 Ur Squamous Epith Cells NONE SEEN (<= Few) 08/04/16 16:40 Urine Crystals 0-2 Uric Acid /LPF 08/04/16 16:40 Urine Bacteria Few /HPF (None Seen) 08/04/16 16:40 Urine Casts 0-2 Hyaline Casts /LPF 08/04/16 16:40 Urine Mucus Few Strands 08/04/16 16:40 Ur Microscopic Review INDICATED 08/04/16 16:40 Urine Culture Comments NOT INDICATED 08/04/16 16:40 Last Dose Date UNK 08/07/16 05:01 Last Dose Time UNK 08/07/16 05:01 Digoxin 1.4 ng/mL 08/07/16 05:01 Hepatitis A IgM Ab NON-REACTIVE (NON-REACTIVE) 08/06/16 04:58 Hep Bs Antigen NON-REACTIVE (NON-REACTIVE) 08/06/16 04:58 Hep B Core IgM Ab NON-REACTIVE (NON-REACTIVE) 08/06/16 04:58 Hepatitis C Antibody NON-REACTIVE (NON-REACTIVE) 08/06/16 04:58 Hep C Ab Signal/Cutoff 0.10 (<1.00) 08/06/16 04:58
[2016-08-08] MEDS: ATENOLOL 25 MG TABLET PO SCH (08:12)
[2016-08-08] MEDS: CLOPIDOGREL 75 MG TABLET PO SCH (08:12)
[2016-08-08] MEDS: DIGOXIN 500 MCG/2 ML AMP IVP SCH (08:13)
[2016-08-08] MEDS: FUROSEMIDE 40 MG/4 ML VIAL IVP SCH (08:16)
[2016-08-08] MEDS: ENOXAPARIN 40 MG/0.4 ML SYRINGE SUBQ SCH (08:18)
[2016-08-08] MEDS: FAMOTIDINE 20 MG/50 ML 50 ML IV SCH (08:20)
[2016-08-08] MEDS: CHLORHEXIDINE GLUCONATE 15 ML UDC PO SCH ×2 (08:20→21:41)
[2016-08-08] MEDS ORDERED: MORPHINE SOL 10 MG/0.5 ML SYRINGE SL PRN (13:04)
[2016-08-08] MEDS ORDERED: ATROPINE 1% OPHTH DROPS 2 ML SL PRN (13:04)
[2016-08-08] MEDS ORDERED: HALOPERIDOL 5 MG/ML VIAL IVP PRN (13:04)
--- NOTE | 2016-08-08 13:12 | ADVANCE CARE PLANNING NOTE ---
Advance Care Planning - Purpose of encounter Text: peterson, Mauro, Coreen, and Sasha in room with MOM, To discuss transition to comfort care. - Parties in attendance Parties in attendance: see above. - Decisional capacity Decisional capacity of: they are deciding with consensus - Subjective/Patient's story Subjective/Patient's story: Mom frail and not well care for in [place] here and noted to have had dramatic decline. still using walker in house to get around - Objective/Medical story Objective/Medical Story: She has had Pneumonia Respiratory failure A fib with RVR, not improved. She has not rebounded neurologically Not responding just moans at times. tries to move rolls some - Goals of Care Goals of care determinations: Keep mom comfortable and allow her to naturally. - Code Status Code Status: Do Not Attempt Resuscitation - Time Spent on Advance Care Planning Time spent on advance care plannin minutes. - Other Other comments: Room permeated with sadness and resignation.
[2016-08-09] MEDS: MORPHINE 2 MG/ML SYRINGE IVP PRN ×5 (02:55→22:00)
[2016-08-09] MEDS: DEXTROSE 5% 1,000 ML IV SCH (03:57)
[2016-08-09] MEDS: LORazepam 2 MG/ML SYRINGE IVP PRN ×3 (06:03→21:58)
[2016-08-09] MEDS: CHLORHEXIDINE GLUCONATE 15 ML UDC PO SCH ×2 (09:51→21:52)
[2016-08-10] MEDS: MORPHINE 2 MG/ML SYRINGE IVP PRN ×4 (01:01→10:14)
[2016-08-10] MEDS: SODIUM CHLORIDE FLUSH 0.9% 10 ML SYRINGE IVP PRN ×5 (01:01→10:15)
[2016-08-10] MEDS: LORazepam 2 MG/ML SYRINGE IVP PRN ×3 (01:58→10:14)
[2016-08-10] MEDS: CHLORHEXIDINE GLUCONATE 15 ML UDC PO SCH (08:10)
[2016-08-10 08:18] VITALS: BP 139/64
--- NOTE | 2016-08-10 12:29 | PROVIDER PROGRESS NOTE ---
Subjective - Prog Note Date Prog Note Date: 08/09/16 Prog Note Time: 13:00 - Subjective Pt reports feeling: No change (late entry 1230 08-10-16 Sharon is not responsive. ) Objective - Vital Signs/Intake & Output Vital Signs: Vital Signs x48h Temp Pulse Resp BP Pulse Ox 08/10/16 08:17 36.1 C L 76 10 L 139/64 H 100 Intake & Output: Intake & Output 08/07/16 08/08/16 08/09/16 08/10/16 23:59 23:59 23:59 23:59 Intake Total 2503 1415 400 Output Total 2615 2100 1000 575 Balance -112 -685 -600 -575 - Objective General Appearance: positive: No acute distress, Lethargic, Other (she is breathing slowly showing no signs of distress.) ENT: positive: Dry mucous membranes Neck: positive: Thyroid nml, No JVD Respiratory: positive: Chest non-tender, No respiratory distress, Breath sounds nml Cardiovascular: positive: Other (irreg rythm) Abdomen: positive: Non-tender Skin: positive: Color nml, Warm Neurologic/Psychiatric: positive: Other (She is in a coma) - Lab Results Fish Bones: 08/08/16 03:10 08/08/16 03:10 Assessment/Plan - Problem List (1) Acute and chronic respiratory failure with hypercapnia Impression: She is on comfort care and getting great care from the staff.
--- NOTE | 2016-08-10 15:13 | DISCHARGE SUMMARY ---
DATE OF ADMISSION: 08/04/2016 DATE OF DISCHARGE: 08/04/2016 DATE OF : 08/10/2016 TIME OF : 11:25 ADMISSION DIAGNOSES: The patient's initial presentation, emergency department evaluation, and hospital plan is well described by Dr. Graff, see copy of same. 1. Acute and chronic respiratory failure with hypercapnia. 2. Chronic obstructive pulmonary disease exacerbation. 3. Community-acquired pneumonia. 4. Encephalopathy. 5. Hypertension. 6. Pulmonary nodule. SPECIAL PROCEDURES The patient had an abdominal and pelvic CT. FINDINGS 1. Right lower lobe 1.2 cm pulmonary nodule could be metastasis versus infectious or inflammatory nodules as there are scattered smaller bilateral pulmonary nodules. 2. Qamj-fc-asemamnt bilateral reticular hazy opacity seen in the lungs which could represent pulmonary fibrotic changes versus infectious/inflammatory disease. Tyve-[id number] pulmonary edema is not excluded. 3. Minimal bibasilar consolidation and bilateral pleural effusions. 4. Large posterior subserosal uterine fibroid, heavily calcified measuring 5.3 cm. 5. Marked atherosclerotic calcification of the abdominal aorta with severe calcification of bilateral iliac arteries. Appears to be causing hemodynamic significant stenosis in the bilateral common iliac arteries. Head CT on 08/04/2016. IMPRESSION: Generalized age-related cortical atrophic changes without evidence of acute intracranial abnormality. Repeat head CT on 08/07/2016. IMPRESSION: Stable atrophy and chronic ischemic changes. No significant interval change from 08/04/2016. Echocardiogram CONCLUSIONS 1. Left ventricular cavity size, decreased overall. Left ventricular systolic function is normal with an ejection fraction of 55-60%. Apical segments are akinetic, suggest Takotsubo cardiomyopathy versus ischemic disease. 2. Right ventricle is normal in size and function. 3. There is [id number] mitral regurgitation. 4. Moderate tricuspid regurgitation, moderately abnormal right heart pressures, RVSP of 68 mmHg. CAUSES OF 1. Acute respiratory failure on chronic respiratory failure with hypercapnia. 2. Community-acquired pneumonia. 3. Chronic obstructive pulmonary disease, emphysema and pulmonary fibrosis causing the chronic respiratory failure. 4. Encephalopathy, etiology undetermined, probable anoxic encephalopathy. 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 Peripheral vascular disease status post stent, history of cardiac arrest during surgery, who presented to the emergency department due to lethargy. The patient was found to have acute respiratory failure on chronic respiratory failure and was admitted to the hospital with the caveat that she is not to have intubation, ventilation or cardiac resuscitation. The patient was then placed on BiPAP and after first day, she was noted to have no significant improvement in her PCO2. She has had high inspiratory and PEEP. The following day the patient was able to be off the BiPAP during the day and went into atrial fibrillation with RVR and required to be back on the BiPAP. She had a reversal to normal sinus and improved blood gas in the day time. She was then able to wean on the oxygen down to 1.5 liters. However, the patient was not responding with any verbal communication or improvement in neural function. The patient had the CTs noted above. Despite negative findings, the patient remained the same, not following commands, barely aroused for most of the time. The patient's family was engaged in daily care conferences and she had a CT scan which did not show any new injury or any indication of toxic injury and no stroke. The family was then again engaged in a care conference and decided that the patient should be transitioned to comfort care. The patient was then attended family with comfort care orders implemented. On the morning of 08/10/2016, she was found at 11:25 to have no respirations, no pulses and no heart sounds. The patient was pronounced and arrangements were made per the recommendations of the family and I did fill out orders for transfer to the home of choice. JOB #: [id number] EXT JOB #:[id number] [facility]athy
== END 2016-08-10 11:25 | disposition expired | DRG 189 ==
LOC: ED 15:30 → ICU 23:27 → MS 08-08 16:41
PROVIDERS: ADMIT Internal Medicine; ATTEND Internal Medicine
DX: J96.22 Acute and chronic respiratory failure with hypercapnia (principal); J18.9 Pneumonia, unspecified organism; G93.40 Encephalopathy, unspecified; J44.0 Chronic obstructive pulmonary disease with (acute) lower respiratory infection; J44.1 Chronic obstructive pulmonary disease with (acute) exacerbation; J90 Pleural effusion, not elsewhere classified; F17.210 Nicotine dependence, cigarettes, uncomplicated; I12.9 Hypertensive chronic kidney disease with stage 1 through stage 4 chronic kidney disease, or unspecified chronic kidney disease; N18.2 Chronic kidney disease, stage 2 (mild); I48.91 Unspecified atrial fibrillation; I08.1 Rheumatic disorders of both mitral and tricuspid valves; I70.0 Atherosclerosis of aorta; R41.0 Disorientation, unspecified; I70.298 Other atherosclerosis of native arteries of extremities, other extremity; R91.8 Other nonspecific abnormal finding of lung field; D25.2 Subserosal leiomyoma of uterus; Z66 Do not resuscitate; R64 Cachexia; Z68.1 Body mass index [BMI] 19.9 or less, adult; Z79.02 Long term (current) use of antithrombotics/antiplatelets; Z79.51 Long term (current) use of inhaled steroids; Z79.899 Other long term (current) drug therapy; Z85.118 Personal history of other malignant neoplasm of bronchus and lung; Z90.2 Acquired absence of lung [part of]; Z95.828 Presence of other vascular implants and grafts; Z99.81 Dependence on supplemental oxygen; I25.2 Old myocardial infarction; Z86.74 Personal history of sudden cardiac arrest
CPT/HCPCS: 36415; 36600; 51701; 70450; 71010; 74177; 80053; 80061; 80074; 80162; 81001; 81003; 82140; 82550; 82803; 83605; 83690; 83735; 84100; 85025; 85610; 87086; 87150; 93005; 93010; 93306; 94640; 94660; 96361; 96365; 96375; 96376; 99284; 99291